=== PATIENT | female | born 1930 | race Caucasian/White ===

== ENCOUNTER 2016-10-25 08:50 | Emergency (ER) | payer MEDICARE, BC ==
[2016-10-25 08:56] VITALS: BP 196/103
[2016-10-25] MEDS ORDERED: Sodium Chloride 0.9% 10 ML Syringe FLUSH PRN (08:57)
--- NOTE | 2016-10-25 08:59 | EDM.PDOC ---
ED HPI Trauma - General Chief Complaint: Trauma Stated Complaint: [facility] Time Seen by Provider: 10/25/16 08:51 Source: Reports: Patient, EMS, Family History Limitations: Reports: No limitations - History of Present Illness INITIAL COMMENTS - FREE TEXT/NARRATIVE: The patient lives at [facility] and she got up and fell forward and landed on her face. She had no LOC. She thinks she may have stumbled and fell forward. She does not think she got lightheaded and fell. She has some ecchymosis to her upper lip with an abrasion. She has no headache, neck pain, chest pain, shortness of breath, abdominal pain, nausea or vomiting. She has some mild left hip pain. Occurred When: just prior to arrival Occurred Where: other ([facility]) Method of Injury: fall Severity: moderate Pain/Injury Location: Reports: face Consciousness: Reports: no loss of consciousness Associated Symptoms: Reports: no other symptoms Allergies/ADRs: Allergies codeine Allergy (Verified 10/25/16 09:05) Other unknown diclofenac Allergy (Verified 10/25/16 09:05) Other unknown Home Medications: Ambulatory Orders Ascorbic Acid [Vitamin C] 500 mg PO DAILY 10/25/16 [Confirmed 10/25/16] Ciprofloxacin HCl [Cipro] 500 mg PO BID #6 tablet 10/25/16 Docusate Sodium 100 mg PO BID PRN 10/25/16 [Confirmed 10/25/16] Lisinopril/Hydrochlorothiazide [Lisinopril-Hctz 10-12.5 mg Tab] 1 tab PO DAILY 10/25/16 [Confirmed 10/25/16] Multivitamin [Multivitamins] 1 cap PO DAILY 10/25/16 [Confirmed 10/25/16] [place]-3S/DHA/Epa/Fish Oil/D3 [Fish Oil + D3 Softgel] 1 tab PO DAILY 10/25/16 [ Confirmed 10/25/16] Omeprazole 20 mg PO DAILY 10/25/16 [Confirmed 10/25/16] Oxybutynin 5 mg PO BID 10/25/16 [Confirmed 10/25/16] Review of Systems - Review of Systems Review Of Systems: See Below Constitutional: Reports: no symptoms Eyes: Reports: no symptoms Ears: Reports: no symptoms Nose: Reports: no symptoms Mouth/Throat: Reports: other (abrasion and edema to the upper lip) Respiratory: Reports: No Symptoms Cardiovascular: Reports: no symptoms GI/Abdominal: Reports: No symptoms Genitourinary: Reports: no symptoms Musculoskeletal: Reports: other (Mild left hip pain) Skin: Reports: no symptoms ED EXAM, TRAUMA (MAJOR/MULTI) - Physical Exam Exam: See Below Exam Limited By: No limitations General Appearance: alert, no apparent distress Head: other (Edema and abrasion to the upper lip with dried blood on both) Eyes: bilateral eye: EOMI Ears: normal external exam Nose: normal inspection Neck: non-tender, normal alignment, normal inspection Cardiovascular: regular rate, rhythm, no edema, no murmur Respiratory/Chest: no respiratory distress, lungs clear, normal breath sounds GI/Abdominal: soft, non tender, no organomegaly Extremities: other (Mild pain upon palpation to the left hip but no pain with internal and external rotation. Good sensation or pulses distally.) Course - Vital Signs Last Recorded V/S: Last Vital Signs Temp 97.5 F 10/25/16 08:52 Pulse 102 H 10/25/16 08:52 Resp 18 10/25/16 08:52 BP 196/103 H 10/25/16 08:52 Pulse Ox 95 10/25/16 08:52 - Orders/Labs/Meds Orders: Active Orders 24 hr Category Date Time Status Cardiac Monitoring [RC] . DIRECTED Care 10/25/16 08:57 Active EKG Documentation Completion [RC] STAT Care 10/25/16 08:58 Active Oxygen Therapy [RC] PRN Care 10/25/16 08:57 Active Peripheral IV Care [RC] . DIRECTED Care 10/25/16 08:57 Active Hip Min 2V or 3V w Pelvis Lt [CR] Stat Exams 10/25/16 08:58 Taken CULTURE URINE [RM] Stat Lab 10/25/16 09:50 Received Sodium Chloride 0.9% [Saline Flush] Med 10/25/16 08:57 Active 10 ml FLUSH ASDIRECTED PRN Peripheral IV Insertion Adult [OM.PC] Stat Oth 10/25/16 08:57 Ordered Medication Orders Sodium Chloride (Saline Flush) 10 ml FLUSH ASDIRECTED PRN PRN Reason: Keep Vein Open Last Admin: 10/25/16 10:01 Dose: 10 ml Labs: Laboratory Tests 10/25/16 10/25/16 10/25/16 Range/Units 09:20 09:20 09:50 WBC 8.50 (3.98-10.04) K/mm3 RBC 4.90 (3.98-5.22) M/mm3 Hgb 14.6 (11.2-15.7) gm/L Hct 43.7 (34.1-44.9) % MCV 89.2 (79.4-94.8) fl MCH 29.8 (25.6-32.2) pg MCHC 33.4 (32.2-35.5) g/dl RDW Std Deviation 45.1 (36.4-46.3) fL Plt Count 313 (182-369) K/mm3 MPV 10.5 (9.4-12.3) fl Neut % (Auto) 75.5 H (34.0-71.1) % Lymph % (Auto) 17.1 L (19.3-51.7) % [place] % (Auto) 5.8 (4.7-12.5) % Eos % (Auto) 1.1 (0.7-5.8) Baso % (Auto) 0.4 (0.1-1.2) % Neut # (Auto) 6.43 H (1.56-6.13) K/mm3 Lymph # (Auto) 1.45 (1.18-3.74) K/mm3 [place] # (Auto) 0.49 H (0.24-0.36) K/mm3 Eos # (Auto) 0.09 (0.04-0.36) K/mm3 Baso # (Auto) 0.03 (0.01-0.08) K/mm3 Sodium 141 (136-145) mEq/L Potassium 4.2 (3.5-5.1) mEq/L Chloride 104 (98-107) mEq/L Carbon Dioxide 28 (21-32) mEq/L Anion Gap 13.2 (5-15) BUN 21 H (7-18) mg/dL Creatinine 0.9 (0.55-1.02) mg/dL Est Cr Clr Drug Dosing 35.74 mL/min Estimated GFR (MDRD) 59 (>60) mL/min BUN/Creatinine Ratio 23.3 H (14-18) Glucose 115 (83-115) mg/dL Calcium 10.0 (8.5-10.1) mg/dL Total Bilirubin 0.7 (0.2-1.0) mg/dL AST 21 (15-37) U/L ALT 18 (14-59) U/L Alkaline Phosphatase 80 (46-116) U/L Troponin I < 0.017 (0.00-0.056) ng/mL Total Protein 7.7 (6.4-8.2) g/dl Albumin 3.8 (3.4-5.0) g/dl Globulin 3.9 gm/dL Albumin/Globulin Ratio 1.0 (1-2) Urine Color Light yellow (Yellow) Urine Appearance Clear (Clear) Urine pH 6.0 (5.0-8.0) Ur Specific [place] 1.020 (1.005-1.030) Urine Protein 1+ H (Negative) Urine Glucose (UA) Negative (Negative) Urine Ketones Trace H (Negative) Urine Occult Blood 1+ H (Negative) Urine Nitrite Negative (Negative) Urine Bilirubin Negative (Negative) Urine Urobilinogen 0.2 (0.2-1.0) Ur Leukocyte Esterase Trace H (Negative) Urine RBC 0-5 (0-5) /hpf Urine WBC 0-5 (0-5) /hpf Ur Epithelial Cells 0-5 (0-5) /hpf Urine Bacteria Many H (FEW) /hpf Urine Mucus Few (FEW) /hpf Meds: Medications Generic Name Dose Route Start Last Admin Trade Name Freq PRN Reason Stop Dose Admin Sodium Chloride 10 ml 10/25/16 08:57 10/25/16 10:01 Saline Flush FLUSH 10 ml ASDIRECTED PRN Administration Keep Vein Open - Re-Assessments/Exams Free Text/Narrative Re-Assessment/Exam: 10/25/16 10:59 I ordered an IV saline lock, EKG, CT of her head, c-spine and facial bones, labs and UA. Her CBC and CMP look good. Her troponin was negative. Her UA shows leukocyte esterase with many bacteria. I will culture that and get her on some cipro for [address] of her cervical spine shows degenerative change. The CT of her head shows mild senescent change, mucosal thickening within the paranasal sinuses which is likely incidental. I am waiting for the CT of her facial bones. 10/25/16 11:[address] of her facial bones shows nothing acute. I will get the cipro ordered. Departure - Departure Time of Disposition: 11:30 Disposition: Home, Self-Care 01 Condition: good Clinical Impression: Fall Qualifiers: Encounter type: initial encounter Qualified Code(s): W19.XXXA - Unspecified fall, initial encounter Abrasion of lip Qualifiers: Encounter type: initial encounter Qualified Code(s): S00.511A - Abrasion of lip , initial encounter Contusion, lip Qualifiers: Encounter type: initial encounter Qualified Code(s): S00.531A - Contusion of lip, initial encounter UTI (urinary tract infection) Qualifiers: Urinary tract infection type: site unspecified Hematuria presence: without hematuria Qualified Code(s): N39.0 - Urinary tract infection, site not specified Prescriptions: Ciprofloxacin HCl [Cipro] 500 mg PO BID #6 tablet Referrals: Riki Hernandez MD [Primary Care Provider] - 1 Week Forms: ED Department Discharge Additional Instructions: Take the cipro 2 times per day for 3 days. Put ice on your face a couple times per day for any swelling. Please return if you are worse. - My Orders Last 24 Hours: My Active Orders 10/25/16 08:57 Cardiac Monitoring [RC] . DIRECTED Oxygen Therapy [RC] PRN Peripheral IV Care [RC] . DIRECTED Sodium Chloride 0.9% [Saline Flush] 10 ml FLUSH ASDIRECTED PRN Peripheral IV Insertion Adult [OM.PC] Stat 10/25/16 08:58 EKG Documentation Completion [RC] STAT Hip Min 2V or 3V w Pelvis Lt [CR] Stat 10/25/16 09:50 CULTURE URINE [RM] Stat - Assessment/Plan Last 24 Hours: My Active Orders 10/25/16 08:57 Cardiac Monitoring [RC] . DIRECTED Oxygen Therapy [RC] PRN Peripheral IV Care [RC] . DIRECTED Sodium Chloride 0.9% [Saline Flush] 10 ml FLUSH ASDIRECTED PRN Peripheral IV Insertion Adult [OM.PC] Stat 10/25/16 08:58 EKG Documentation Completion [RC] STAT Hip Min 2V or 3V w Pelvis Lt [CR] Stat 10/25/16 09:50 CULTURE URINE [RM] Stat
--- NOTE | 2016-10-25 09:48 | CT ---
Head CT Technique: Multiple axial sections through the brain were obtained. Intravenous contrast was not utilized. Comparison: No previous intracranial imaging. Findings: Ventricles along with basal cisterns and sulci are convexities are mildly prominent. Mild diminished density noted within portions of the periventricular and subcortical white matter compatible with small vessel ischemic demyelination change. No other abnormal parenchymal densities are seen. No evidence of intracranial hemorrhage. No midline shift or mass effect is seen. Bone window settings were reviewed which shows mild mucosal thickening within the right maxillary sinus. Minimal mucosal thickening is noted within the ethmoid sinuses. Mastoid sinuses and middle ear cavities are clear. No acute calvarial abnormality is identified. Impression: 1. Mild senescent change as described above. 2. Mucosal thickening within the paranasal sinuses which is likely incidental. 3. Nothing acute is identified. Diagnostic code #2
--- NOTE | 2016-10-25 09:51 | CT ---
Maxillofacial CT Technique: Multiple axial sections were obtained. Reconstructed coronal and sagittal images were obtained. Findings: Mucosal thickening is seen within the right maxillary sinus. Minimal mucosal thickening is noted within the ethmoid sinuses. Right and left globes are symmetric. Degenerative change is partially visualized within the cervical spine. Mild joint space narrowing is seen within the temporomandibular joints. No acute fracture or other abnormality is identified. Impression: 1. Sinus findings likely pre-existing. 2. Mild degenerative change within the temporomandibular joints. 3. Nothing acute is identified on CT study of the facial bones. Diagnostic code #2
--- NOTE | 2016-10-25 09:54 | CT ---
CT cervical spine Technique: Multiple axial sections were obtained from above C1 inferiorly to the mid T2 level. Reconstructed sagittal and coronal images were reviewed. Comparison: No previous cervical spine imaging. Findings: Posterior skull base is intact. Mild degenerative change is seen between the dens and anterior arch of C1. Moderate disc space narrowing is noted at C3-C4. Severe disc space narrowing is noted at C4-C5, C5-C6 and C6-C7. Mild disc space narrowing is noted at C7-T1. Degenerative spurring is noted within the uncovertebral joints from C3-C4 inferiorly through C5-C6-C7. Anterior osteophytes are also seen at these levels. Mild diffuse degenerative apophyseal change is seen throughout the cervical spine. Mild right-sided neural foraminal stenosis is noted at C3-C4. Mild bilateral neural foraminal stenosis is noted at C4-C5. Moderate bilateral neural foraminal stenosis noted at C5-C6 and at C6-C7. Posterior spurring with diffuse disc bulging noted at C4-C5 causing minimal central canal stenosis. No fracture is seen. Impression: 1. Degenerative change as described above. 2. No acute abnormality is identified on CT study of the cervical spine. Diagnostic code #2
--- NOTE | 2016-10-25 12:02 | CR ---
Pelvis and left hip: AP view of the pelvis was obtained as well as AP and frog-leg lateral views of the left hip. Comparison: No previous study. Degenerative change partially visualized within the lower lumbar spine. Joint spaces within both hips are maintained. Bony structures are osteopenic. No acute fracture or dislocation is identified. Mild vascular calcification is seen. Impression: 1. Incidental findings as noted above. Nothing acute is identified on AP pelvis or on two-view left hip exam. Diagnostic code #2
== END 2016-10-25 11:45 | disposition home or self-care (01) ==
LOC: JD.ED 08:50
DX: M25.552 Pain in left hip (principal); S00.511A Abrasion of lip, initial encounter; S00.531A Contusion of lip, initial encounter; W19.XXXA Unspecified fall, initial encounter; N39.0 Urinary tract infection, site not specified; Z88.8 Allergy status to other drugs, medicaments and biological substances; Z79.899 Other long term (current) drug therapy
CPT/HCPCS: 36415; 70450; 70486; 72125; 73502; 80053; 81001; 84484; 85025; 87086; 87088; 87186; 93005; 99285; J7050; P9612; 99284

== ENCOUNTER 2017-12-13 18:34 | Emergency (ER) | payer OTHER, MEDICARE, MEDICAID ==
[2017-12-13 18:48] VITALS: BP 174/74
--- NOTE | 2017-12-13 19:08 | EDM.PDOC ---
ED HPI GENERAL MEDICAL PROBLEM - General Chief Complaint: Lower Extremity Injury/Pain Stated Complaint: FELL RIGHT SIDE Time Seen by Provider: 12/13/17 18:54 Source of Information: Reports: Patient, RN Notes Reviewed - History of Present Illness INITIAL COMMENTS - FREE TEXT/NARRATIVE: 87 year old lady fell unto right side about 2 hrs ago getting out of bed. Has been complaining of R knee pain and R post lat chest, rib pain. no apparent difficulty breathing. Has dementia so hx quite difficult. A son is with her and providing most of the information. No head or neck pain or injury. no unusual back or hip pain. - Related Data Allergies Allergy/AdvReac Type Severity Reaction Status Date / Time codeine Allergy Other Verified 12/13/17 18:47 diclofenac Allergy Other Verified 12/13/17 18:47 Home Meds: Home Meds Ascorbic Acid [Vitamin C] 500 mg PO DAILY 10/25/16 [History] Docusate Sodium 100 mg PO BID PRN 10/25/16 [History] Lisinopril/Hydrochlorothiazide [Lisinopril-Hctz 10-12.5 mg Tab] 1 tab PO DAILY 10/25/16 [History] Multivitamin [Multivitamins] 1 cap PO DAILY 10/25/16 [History] Omeprazole 20 mg PO DAILY 10/25/16 [History] Oxybutynin 5 mg PO BID 10/25/16 [History] Sertraline [Zoloft] 25 mg PO DAILY 12/13/17 [History] Past Medical History Neurological History: Reports: Other (See Below) Other Neuro History: dementia - Past Surgical History GI Surgical History: Reports: Cholecystectomy Female Surgical History: Reports: Hysterectomy, Other (See Below) Other Female Surgeries/Procedures: uterine cancer Social & Family History - Tobacco Use Smoking Status *Q: Never Smoker - Caffeine Use Caffeine Use: Reports: None - Recreational Drug Use Recreational Drug Use: No Review of Systems - Review of Systems Review Of Systems: See Below Mouth/Throat: Reports: No Symptoms Respiratory: Denies: Shortness of Breath, Pleuritic Chest Pain Cardiovascular: Denies: Chest Pain GI/Abdominal: Denies: Abdominal Pain, Nausea, Vomiting Musculoskeletal: Reports: Joint Pain (R knee). Denies: Neck Pain, Shoulder Pain , Arm Pain, Back Pain Skin: Reports: No Symptoms. Denies: Bruising Neurological: Reports: Confusion (chronic). Denies: Weakness ED EXAM, GENERAL - Physical Exam Exam: See Below General Appearance: Alert, No Apparent Distress Eye Exam: Bilateral Eye: PERRL Ears: Normal External Exam Nose: Normal Inspection Throat/Mouth: Normal Inspection Head: Atraumatic. No: Facial Swelling Neck: Supple Respiratory/Chest: No Respiratory Distress, Lungs Clear, Normal Breath Sounds, Other (mild tenderness R post lateral chest, no bruising or swelling) Cardiovascular: Regular Rate, Rhythm GI/Abdominal: Soft, Non-Tender Back Exam: No: Vertebral Tenderness Extremities: Joint Swelling (mild swelling R knee, chronic? no focal tenderness , mild to moderate pain with motion, leg, ankle, foot nontender., hips and pelvis nontender) Course - Vital Signs Last Recorded V/S: Last Vital Signs Temp 98 F 12/13/17 18:44 Pulse 88 12/13/17 18:44 Resp 18 12/13/17 18:44 BP 174/74 H 12/13/17 18:44 Pulse Ox 93 L 12/13/17 18:44 - Orders/Labs/Meds Orders: Active Orders 24 hr Category Date Time Status Knee Min 4V Rt [CR] Stat Exams 12/13/17 19:02 Taken Ribs 2V w Chest Rt [CR] Stat Exams 12/13/17 19:03 Taken Meds: Medications Discontinued Medications Generic Name Dose Route Start Last Admin Trade Name Freq PRN Reason Stop Dose Admin Acetaminophen 975 mg 12/13/17 19:48 Tylenol PO 12/13/17 19:49 NOW ONE Departure - Departure Time of Disposition: 19:49 Disposition: Home, Self-Care 01 Condition: Fair Clinical Impression: Fall Qualifiers: Encounter type: initial encounter Qualified Code(s): W19.XXXA - Unspecified fall, initial encounter Contusion, knee Qualifiers: Encounter type: initial encounter Laterality: right Qualified Code(s): S80.01XA - Contusion of right knee, initial encounter Closed rib fracture Qualifiers: Encounter type: initial encounter Rib fracture type: single rib Laterality: right Qualified Code(s): S22.31XA - Fracture of one rib, right side, initial encounter for closed fracture - Discharge Information Referrals: Riki Hernandez MD [Primary Care Provider] - Forms: ED Department Discharge Additional Instructions: There is visible fracture of R 7th rib on the back side, rest, move slowly and carefully, tylenol up to 3 times daily for pain, See provider at [facility] in 2 to 3 days for follow up. - My Orders Last 24 Hours: My Active Orders 12/13/17 19:02 Knee Min 4V Rt [CR] Stat 12/13/17 19:03 Ribs 2V w Chest Rt [CR] Stat - Assessment/Plan Last 24 Hours: My Active Orders 12/13/17 19:02 Knee Min 4V Rt [CR] Stat 12/13/17 19:03 Ribs 2V w Chest Rt [CR] Stat
[2017-12-13] MEDS ORDERED: Acetaminophen 325 MG Tab PO ONE (19:48)
--- NOTE | 2017-12-14 07:31 | CR ---
Chest and right ribs: Frontal view of the chest was obtained as well as four views of the right ribs. Comparison: No prior chest x-ray. Large hiatal hernia is seen. Heart size is slightly enlarged. Tortuous thoracic aorta is seen. Calcific tendinitis is noted within the left shoulder. Lungs show no acute parenchymal densities. Fracture is identified within the right seventh rib which is indeterminate for age. Osteopenia is noted. No other definite rib abnormality is appreciated. Degenerative change is noted within the right shoulder. Impression: 1. Fracture within the right seventh rib indeterminate for age and please correlate if patient is symptomatic to this region. 2. Other findings which are felt to be incidental as noted above. Diagnostic code #3
--- NOTE | 2017-12-14 07:31 | CR ---
Right knee: Four views of the right knee were obtained. Comparison: No prior knee exam. Severe lateral joint space narrowing is noted with lateral osteophytes. Osteopenia is present. Minimal osteophytes off the patella are seen. Spurring is noted off the superior patella within the quadriceps tendon. Vascular calcification is noted. Bony structures are osteoporotic. Impression: 1. Degenerative change and other findings as noted above. Nothing acute is appreciated. Diagnostic code #3
== END 2017-12-13 20:20 | disposition home or self-care (01) ==
LOC: JD.ED 18:34
DX: S22.31XA Fracture of one rib, right side, initial encounter for closed fracture (principal); S80.01XA Contusion of right knee, initial encounter; Z79.899 Other long term (current) drug therapy; Z88.5 Allergy status to narcotic agent; Z88.8 Allergy status to other drugs, medicaments and biological substances; W19.XXXA Unspecified fall, initial encounter
CPT/HCPCS: 71101; 73564; 99284; A9270

== ENCOUNTER 2018-02-25 10:02 | Inpatient (IN) | payer MEDICARE, MEDICAID ==
[2018-02-25] MEDS ORDERED: Sodium Chloride 0.9% 10 ML Syringe FLUSH PRN (10:33)
[2018-02-25] MEDS ORDERED: Acetaminophen 325 MG Tab PO ONE (10:35)
[2018-02-25] MEDS ORDERED: cefTRIAXone 2 GM in Sodium Chloride 0.9% 100 ML IV ONE (10:38)
[2018-02-25] MEDS ORDERED: Sodium Chloride 0.9% 1,000 ML IV SCH (10:45)
--- NOTE | 2018-02-25 11:39 | EDM.PDOC ---
ED HPI GENERAL MEDICAL PROBLEM - General Chief Complaint: Fever Stated Complaint: [facility] Time Seen by Provider: 02/25/18 10:06 Source of Information: Reports: Patient, EMS, Other ([place] [facility]) History Limitations: Reports: No Limitations - History of Present Illness INITIAL COMMENTS - FREE TEXT/NARRATIVE: The patient presents with a fever and confusion. She has a slight cough. She denies chest pain or shortness of breath. She lives at the [facility] in [place]. She was fine last night. She woke up this morning and she had a fever and she was confused. She has no abdominal pain but she has some nausea but no vomiting. She had low oxygen saturation of 89%. She got some zofran 4mg IV. She also had right knee pain for a few days. Her temp was 101 here. She did get tylenol before she left the [facility]. She no dysuria or diarrhea. Onset: Gradual Duration: Day(s): Severity: Moderate Improves with: Reports: Immobilization Worsens with: Reports: Movement Associated Symptoms: Reports: Cough, Fever/Chills, Nausea/Vomiting. Denies: Chest Pain, Headaches, Shortness of Breath - Related Data Allergies Allergy/AdvReac Type Severity Reaction Status Date / Time codeine Allergy Other Verified 02/25/18 10:34 diclofenac Allergy Other Verified 02/25/18 10:34 Home Meds: Home Meds Ascorbic Acid [Vitamin C] 500 mg PO DAILY 10/25/16 [History] Docusate Sodium 100 mg PO BID PRN 10/25/16 [History] Lisinopril/Hydrochlorothiazide [Lisinopril-Hctz 10-12.5 mg Tab] 10 - 12.5 mg PO DAILY 10/25/16 [History] Multivitamin [Multivitamins] 1 cap PO DAILY 10/25/16 [History] Omeprazole 20 mg PO DAILY 10/25/16 [History] Oxybutynin 5 mg PO BID 10/25/16 [History] Sertraline [Zoloft] 25 mg PO DAILY 12/13/17 [History] Acetaminophen [Tylenol Extra Strength] 1,000 mg PO Q8H PRN 02/25/18 [History] Aspirin [Lo-Dose Aspirin EC] 81 mg PO DAILY 02/25/18 [History] Calcium Polycarbophil [Fibercon] 625 mg PO BID 02/25/18 [History] Ferrous Sulfate [Slow Fe] 50 mg PO BID 02/25/18 [History] Furosemide [Lasix] 20 mg PO DAILY PRN 02/25/18 [History] Hydroxyurea [Hydrea] 500 mg PO DAILY 02/25/18 [History] Ibuprofen 200 mg PO Q8H PRN 02/25/18 [History] Past Medical History HEENT History: Reports: Impaired Vision Other HEENT History: wears eyeglasses. Cardiovascular History: Reports: Hypertension Gastrointestinal History: Reports: GERD Genitourinary History: Reports: UTI, Recurrent [employer] History: Reports: Neurological History: Reports: Other (See Below) Other Neuro History: dementia Hematologic History: Reports: Anemia, Iron Deficiency Oncologic (Cancer) History: Reports: Uterine - Past Surgical History GI Surgical History: Reports: Cholecystectomy Female Surgical History: Reports: Hysterectomy, Other (See Below) Other Female Surgeries/Procedures: uterine cancer Musculoskeletal Surgical History: Reports: Knee Replacement Social & Family History - Tobacco Use Smoking Status *Q: Never Smoker Second Hand Smoke Exposure: No - Caffeine Use Caffeine Use: Reports: None - Recreational Drug Use Recreational Drug Use: No ED ROS GENERAL - Review of Systems Review Of Systems: See Below Constitutional: Reports: Fever, Chills HEENT: Reports: No Symptoms Respiratory: Reports: No Symptoms Cardiovascular: Reports: No Symptoms Endocrine: Reports: No Symptoms GI/Abdominal: Reports: No Symptoms : Reports: No Symptoms Musculoskeletal: Reports: Other (Right knee pain) ED EXAM, SEPSIS - Physical Exam Exam: See Below Exam Limited By: No Limitations General Appearance: Alert, No Apparent Distress Ears: Normal External Exam Nose: Normal Inspection Head: Atraumatic, Normocephalic Neck: Normal Inspection Respiratory/Chest: No Respiratory Distress, Decreased Breath Sounds Cardiovascular: Regular Rate, Rhythm, No Edema, No Murmur GI/Abdominal Exam: Soft, Non-Tender, No Organomegaly, No Mass Back: Normal Inspection Extremities: Other (Mild to moderate edema of her right knee with warmth and pain upon palpation) Neurological: Alert, Oriented, No Motor/Sensory Deficits Course - Vital Signs Last Recorded V/S: Last Vital Signs Temp 98.8 F 02/25/18 14:15 Pulse 70 02/25/18 14:15 Resp 16 02/25/18 14:15 BP 101/49 L 02/25/18 14:15 Pulse Ox 96 02/25/18 14:15 - Orders/Labs/Meds Orders: Active Orders 24 hr Category Date Time Status Cardiac Monitoring [RC] . DIRECTED Care 02/25/18 10:33 Active Insert Yepez Catheter [Insert Urinary Catheter] [OM.PC] Care 02/25/18 10:21 Ordered Q24H Oxygen Therapy [RC] PRN Care 02/25/18 10:33 Active Peripheral IV Care [RC] . DIRECTED Care 02/25/18 10:34 Active Urinary Catheter Assessment [RC] ASDIRECTED Care 02/25/18 10:21 Active Chest 1V Frontal [CR] Stat Exams 02/25/18 10:34 Taken Knee Min 4V Rt [CR] Stat Exams 02/25/18 10:42 Taken CULTURE BLOOD [BC] Stat Lab 02/25/18 10:55 Received CULTURE BLOOD [BC] Stat Lab 02/25/18 11:00 Received CULTURE BODY FLUID + SMEAR [RM] Stat Lab 02/25/18 12:30 Results CULTURE URINE [RM] Stat Lab 02/25/18 10:21 Received UA W/MICROSCOPIC [URIN] Stat Lab 02/25/18 10:21 Ordered Sodium Chloride 0.9% [Normal Saline] 1,000 ml Med 02/25/18 10:45 Active IV ASDIRECTED Sodium Chloride 0.9% [Saline Flush] Med 02/25/18 10:33 Active 10 ml FLUSH ASDIRECTED PRN Blood Culture x2 Reflex Set [OM.PC] Stat Oth 02/25/18 10:35 Ordered Peripheral IV Insertion Adult [OM.PC] Stat Oth 02/25/18 10:33 Ordered Medication Orders Sodium Chloride (Normal Saline) 1,000 mls @ 125 mls/hr IV ASDIRECTED [facility] Last Admin: 02/25/18 11:05 Dose: 125 mls/hr Sodium Chloride (Saline Flush) 10 ml FLUSH ASDIRECTED PRN PRN Reason: Keep Vein Open Last Admin: 02/25/18 11:14 Dose: 10 ml Labs: Laboratory Tests 02/25/18 02/25/18 02/25/18 Range/Units 10:21 10:55 10:55 WBC 8.47 (3.98-10.04) K/mm3 RBC 3.62 L (3.98-5.22) M/mm3 Hgb 11.3 (11.2-15.7) gm/L Hct 34.6 (34.1-44.9) % MCV 95.6 H (79.4-94.8) fl MCH 31.2 (25.6-32.2) pg MCHC 32.7 (32.2-35.5) g/dl RDW Std Deviation 66.0 H (36.4-46.3) fL Plt Count 244 (182-369) K/mm3 MPV 9.2 L (9.4-12.3) fl Neut % (Auto) 88.9 H (34.0-71.1) % Lymph % (Auto) 4.7 L (19.3-51.7) % [place] % (Auto) 6.0 (4.7-12.5) % Eos % (Auto) 0.1 L (0.7-5.8) Baso % (Auto) 0.1 (0.1-1.2) % Neut # (Auto) 7.52 H (1.56-6.13) K/mm3 Lymph # (Auto) 0.40 L (1.18-3.74) K/mm3 [place] # (Auto) 0.51 H (0.24-0.36) K/mm3 Eos # (Auto) 0.01 L (0.04-0.36) K/mm3 Baso # (Auto) 0.01 (0.01-0.08) K/mm3 Manual Slide Review Normal smear Sodium 143 (136-145) mEq/L Potassium 3.7 (3.5-5.1) mEq/L Chloride 107 (98-107) mEq/L Carbon Dioxide 28 (21-32) mEq/L Anion Gap 11.7 (5-15) BUN 27 H (7-18) mg/dL Creatinine 0.9 (0.55-1.02) mg/dL Est Cr Clr Drug Dosing 35.05 mL/min Estimated GFR (MDRD) 59 (>60) mL/min BUN/Creatinine Ratio 30.0 H (14-18) Glucose 116 H (83-115) mg/dL Lactic Acid (0.4-2.0) mmol/L Calcium 8.5 (8.5-10.1) mg/dL Total Bilirubin 0.3 (0.2-1.0) mg/dL AST 33 (15-37) U/L ALT 19 (14-59) U/L Alkaline Phosphatase 78 (46-116) U/L C-Reactive Protein 16.8 H* (<1.0) mg/dL Total Protein 6.5 (6.4-8.2) g/dl Albumin 2.7 L (3.4-5.0) g/dl Globulin 3.8 gm/dL Albumin/Globulin Ratio 0.7 L (1-2) Urine Color Yellow (Yellow) Urine Appearance Clear (Clear) Urine pH 5.5 (5.0-8.0) Ur Specific [place] 1.020 (1.005-1.030) Urine Protein 1+ H (Negative) Urine Glucose (UA) Negative (Negative) Urine Ketones Negative (Negative) Urine Occult Blood 1+ H (Negative) Urine Nitrite Negative (Negative) Urine Bilirubin Negative (Negative) Urine Urobilinogen 0.2 (0.2-1.0) Ur Leukocyte Esterase Negative (Negative) Urine RBC 0-5 (0-5) /hpf Urine WBC 0-5 (0-5) /hpf Ur Epithelial Cells 0-5 (0-5) /hpf Urine Bacteria Few (FEW) /hpf Urine Mucus Few (FEW) /hpf Synovial Fluid Site Synovial Color Synovial Appearance (CLEAR) Synovial Volume Synovial WBC (0.200-0.600) k/mm*3 Synovial RBC (0.00-0.003) 10*6/uL Synovial Seg Neuts (0-25) % Synovial Lymphocytes (0-78) % 02/25/18 02/25/18 Range/Units 10:55 12:30 WBC (3.98-10.04) K/mm3 RBC (3.98-5.22) M/mm3 Hgb (11.2-15.7) gm/L Hct (34.1-44.9) % MCV (79.4-94.8) fl MCH (25.6-32.2) pg MCHC (32.2-35.5) g/dl RDW Std Deviation (36.4-46.3) fL Plt Count (182-369) K/mm3 MPV (9.4-12.3) fl Neut % (Auto) (34.0-71.1) % Lymph % (Auto) (19.3-51.7) % [place] % (Auto) (4.7-12.5) % Eos % (Auto) (0.7-5.8) Baso % (Auto) (0.1-1.2) % Neut # (Auto) (1.56-6.13) K/mm3 Lymph # (Auto) (1.18-3.74) K/mm3 [place] # (Auto) (0.24-0.36) K/mm3 Eos # (Auto) (0.04-0.36) K/mm3 Baso # (Auto) (0.01-0.08) K/mm3 Manual Slide Review Sodium (136-145) mEq/L Potassium (3.5-5.1) mEq/L Chloride (98-107) mEq/L Carbon Dioxide (21-32) mEq/L Anion Gap (5-15) BUN (7-18) mg/dL Creatinine (0.55-1.02) mg/dL Est Cr Clr Drug Dosing mL/min Estimated GFR (MDRD) (>60) mL/min BUN/Creatinine Ratio (14-18) Glucose (83-115) mg/dL Lactic Acid 0.4 (0.4-2.0) mmol/L Calcium (8.5-10.1) mg/dL Total Bilirubin (0.2-1.0) mg/dL AST (15-37) U/L ALT (14-59) U/L Alkaline Phosphatase (46-116) U/L C-Reactive Protein (<1.0) mg/dL Total Protein (6.4-8.2) g/dl Albumin (3.4-5.0) g/dl Globulin gm/dL Albumin/Globulin Ratio (1-2) Urine Color (Yellow) Urine Appearance (Clear) Urine pH (5.0-8.0) Ur Specific [place] (1.005-1.030) Urine Protein (Negative) Urine Glucose (UA) (Negative) Urine Ketones (Negative) Urine Occult Blood (Negative) Urine Nitrite (Negative) Urine Bilirubin (Negative) Urine Urobilinogen (0.2-1.0) Ur Leukocyte Esterase (Negative) Urine RBC (0-5) /hpf Urine WBC (0-5) /hpf Ur Epithelial Cells (0-5) /hpf Urine Bacteria (FEW) /hpf Urine Mucus (FEW) /hpf Synovial Fluid Site Right knee Synovial Color [place] Synovial Appearance Slightly cloudy (CLEAR) Synovial Volume 4 Synovial WBC 1.846 H (0.200-0.600) k/mm*3 Synovial RBC 0.007 H (0.00-0.003) 10*6/uL Synovial Seg Neuts 92.0 H (0-25) % Synovial Lymphocytes 8.0 (0-78) % Meds: Medications Generic Name Dose Route Start Last Admin Trade Name Freq PRN Reason Stop Dose Admin Sodium Chloride 1,000 mls @ 125 mls/hr 02/25/18 10:45 02/25/18 11:05 Normal Saline IV 125 mls/hr ASDIRECTED LAMAR Administration Sodium Chloride 10 ml 02/25/18 10:33 02/25/18 11:14 Saline Flush FLUSH 10 ml ASDIRECTED PRN Administration Keep Vein Open Discontinued Medications Generic Name Dose Route Start Last Admin Trade Name Freq PRN Reason Stop Dose Admin Acetaminophen 975 mg 02/25/18 10:35 02/25/18 11:05 Tylenol PO 02/25/18 10:36 975 mg NOW ONE Administration Ceftriaxone Sodium 2 gm/ 100 mls @ 100 mls/hr 02/25/18 10:38 02/25/18 11:14 Sodium Chloride IV 02/25/18 11:37 100 mls/hr ONETIME ONE Administration Lidocaine HCl 10 ml 02/25/18 12:13 02/25/18 12:25 Xylocaine 1% INJECT 02/25/18 12:14 10 ml ONETIME ONE Administration - Re-Assessments/Exams Free Text/Narrative Re-Assessment/Exam: 02/25/18 14:45 I ordered an IV NS, labs, CXR, oxygen, blood cultures, UA, and rocephin 2 grams IV. Her CXR shows some atalectasis and possible pneumonia to the right middle lobe. 02/25/18 14:48 Her CBC is negative. Her CMP looks good. Her lactic acid is normal. Her UA shows no UTI. Her CRP is elevated at 16.8. I did got a sample of synovial fluid and sent if for analysis. There was 1.856 WBC and 92% segs. I feel she does have pneumonia and possibly a septic joint in the right knee. I called Dr Chahal and she agreed to the admission. Dr Muniz will be consulted. 02/25/18 14:54 I did an x-ray of his knee and there was severe arthritis. Departure - Departure Time of Disposition: 15:00 Disposition: Admitted As Inpatient 64 Condition: Fair Clinical Impression: Hypoxia Pneumonia Qualifiers: Pneumonia type: due to unspecified organism Laterality: right Lung location: lower lobe of lung Qualified Code(s): J18.1 - Lobar pneumonia, unspecified organism Right knee pain Qualifiers: Chronicity: acute Qualified Code(s): M25.561 - Pain in right knee - Discharge Information - My Orders Last 24 Hours: My Active Orders 02/25/18 10:21 Insert Yepez Catheter [Insert Urinary Catheter] [OM.PC] Q24H Urinary Catheter Assessment [RC] ASDIRECTED CULTURE URINE [RM] Stat UA W/MICROSCOPIC [URIN] Stat 02/25/18 10:33 Cardiac Monitoring [RC] . DIRECTED Oxygen Therapy [RC] PRN Sodium Chloride 0.9% [Saline Flush] 10 ml FLUSH ASDIRECTED PRN Peripheral IV Insertion Adult [OM.PC] Stat 02/25/18 10:34 Peripheral IV Care [RC] . DIRECTED Chest 1V Frontal [CR] Stat 02/25/18 10:35 Blood Culture x2 Reflex Set [OM.PC] Stat 02/25/18 10:42 Knee Min 4V Rt [CR] Stat 02/25/18 10:45 Sodium Chloride 0.9% [Normal Saline] 1,000 ml IV ASDIRECTED 02/25/18 10:55 CULTURE BLOOD [BC] Stat 02/25/18 11:00 CULTURE BLOOD [BC] Stat 02/25/18 12:30 CULTURE BODY FLUID + SMEAR [RM] Stat - Assessment/Plan Last 24 Hours: My Active Orders 02/25/18 10:21 Insert Yepez Catheter [Insert Urinary Catheter] [OM.PC] Q24H Urinary Catheter Assessment [RC] ASDIRECTED CULTURE URINE [RM] Stat UA W/MICROSCOPIC [URIN] Stat 02/25/18 10:33 Cardiac Monitoring [RC] . DIRECTED Oxygen Therapy [RC] PRN Sodium Chloride 0.9% [Saline Flush] 10 ml FLUSH ASDIRECTED PRN Peripheral IV Insertion Adult [OM.PC] Stat 02/25/18 10:34 Peripheral IV Care [RC] . DIRECTED Chest 1V Frontal [CR] Stat 02/25/18 10:35 Blood Culture x2 Reflex Set [OM.PC] Stat 02/25/18 10:42 Knee Min 4V Rt [CR] Stat 02/25/18 10:45 Sodium Chloride 0.9% [Normal Saline] 1,000 ml IV ASDIRECTED 02/25/18 10:55 CULTURE BLOOD [BC] Stat 02/25/18 11:00 CULTURE BLOOD [BC] Stat 02/25/18 12:30 CULTURE BODY FLUID + SMEAR [RM] Stat
[2018-02-25] MEDS ORDERED: Lidocaine 1% 10 ML MDV INJECT ONE (12:13)
--- NOTE | 2018-02-25 14:40 | PCM.HP ---
H&P History of Present Illness - General Date of Service: 02/25/18 Admit Problem/Dx: Admission Diagnosis/Problem Admission Diagnosis/Problem Pneumonia Source of Information: Provider History Limitations: Reports: No Limitations - History of Present Illness Onset of Symptoms: Reports: Sudden Symptom Onset Date: 02/25/18 Duration of Symptoms: Reports: Day(s): Location: Reports: Generalized Improves with: Reports: Medication Worsens with: Reports: None Context: Reports: Sick Contact (unknown) Associated Symptoms: Reports: Cough, Fever/Chills, Loss of Appetite, Nausea/ Vomiting, Shortness of Breath, Weakness - Related Data Allergies/Adverse Reactions: Allergies Allergy/AdvReac Type Severity Reaction Status Date / Time codeine Allergy Other Verified 02/25/18 10:34 diclofenac Allergy Other Verified 02/25/18 10:34 Home Medications: Home Meds Ascorbic Acid [Vitamin C] 500 mg PO DAILY 10/25/16 [History] Docusate Sodium 100 mg PO BID PRN 10/25/16 [History] Lisinopril/Hydrochlorothiazide [Lisinopril-Hctz 10-12.5 mg Tab] 10 - 12.5 mg PO DAILY 10/25/16 [History] Multivitamin [Multivitamins] 1 cap PO DAILY 10/25/16 [History] Omeprazole 20 mg PO DAILY 10/25/16 [History] Oxybutynin 10 mg PO 1700 10/25/16 [History] Sertraline [Zoloft] 25 mg PO DAILY 12/13/17 [History] Acetaminophen [Tylenol Extra Strength] 1,000 mg PO Q8H PRN 02/25/18 [History] Aspirin [Lo-Dose Aspirin EC] 81 mg PO DAILY 02/25/18 [History] Calcium Polycarbophil [Fibercon] 625 mg PO BID 02/25/18 [History] Ferrous Sulfate [Slow Fe] 50 mg PO BID 02/25/18 [History] Furosemide [Lasix] 20 mg PO DAILY PRN 02/25/18 [History] Hydroxyurea [Hydrea] 500 mg PO DAILY 02/25/18 [History] Ibuprofen 200 mg PO Q8H PRN 02/25/18 [History] Past Medical History HEENT History: Reports: Impaired Vision Other HEENT History: wears eyeglasses. 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: Neurological History: Reports: Other (See Below) Other Neuro History: dementia Hematologic History: Reports: Anemia, Iron Deficiency Oncologic (Cancer) History: Reports: Uterine - Past Surgical History GI Surgical History: Reports: Cholecystectomy Female Surgical History: Reports: Hysterectomy, Other (See Below) Other Female Surgeries/Procedures: uterine cancer Musculoskeletal Surgical History: Reports: Knee Replacement Social & Family History - Tobacco Use Smoking Status *Q: Never Smoker Second Hand Smoke Exposure: No - Caffeine Use Caffeine Use: Reports: None - Recreational Drug Use Recreational Drug Use: No H&P Review of Systems - Review of Systems: Review Of Systems: See Below General: Reports: Fever, Chills, Malaise, Weakness, Decreased Appetite HEENT: Reports: No Symptoms Pulmonary: Reports: Shortness of Breath Cardiovascular: Reports: No Symptoms Gastrointestinal: Reports: No Symptoms Genitourinary: Reports: No Symptoms Musculoskeletal: Reports: No Symptoms Skin: Reports: No Symptoms Psychiatric: Reports: Confusion Neurological: Reports: Confusion Hematologic/Lymphatic: Reports: No Symptoms Immunologic: Reports: No Symptoms Exam - Exam Exam: See Below - Vital Signs Vital Signs: Last Vital Signs Temp 37.1 C 02/25/18 14:15 Pulse 70 02/25/18 14:15 Resp 16 02/25/18 14:15 BP 101/49 L 02/25/18 14:15 Pulse Ox 96 02/25/18 14:15 Weight: 56.699 kg - Exam Quality Assessment: Supplemental Oxygen General: Alert, Oriented, Cooperative HEENT: Nares Patent, Normal Nasal Septum, Pupils Equal, Pupils Reactive, PERRLA Neck: Trachea Midline Lungs: Normal Respiratory Effort Cardiovascular: Regular Rate GI/Abdominal Exam: Normal Bowel Sounds, Soft, Non-Tender, No Organomegaly, No Distention (Female) Exam: Deferred Rectal (Female) Exam: Deferred Back Exam: Normal Inspection Extremities: Normal Inspection, Non-Tender, Slow Capillary Refill Skin: Warm Neurological: Cranial Nerves Intact Neuro Extensive - Mental Status: Alert Neuro Extensive - Motor, Sensory, Reflexes: CN II-XII Intact - Patient Data Lab Results Last 24 hrs: Laboratory Results - last 24 hr 02/25/18 02/25/18 02/25/18 Range/Units 10:21 10:55 10:55 WBC 8.47 (3.98-10.04) K/mm3 RBC 3.62 L (3.98-5.22) M/mm3 Hgb 11.3 (11.2-15.7) gm/L Hct 34.6 (34.1-44.9) % MCV 95.6 H (79.4-94.8) fl MCH 31.2 (25.6-32.2) pg MCHC 32.7 (32.2-35.5) g/dl RDW Std Deviation 66.0 H (36.4-46.3) fL Plt Count 244 (182-369) K/mm3 MPV 9.2 L (9.4-12.3) fl Neut % (Auto) 88.9 H (34.0-71.1) % Lymph % (Auto) 4.7 L (19.3-51.7) % [place] % (Auto) 6.0 (4.7-12.5) % Eos % (Auto) 0.1 L (0.7-5.8) Baso % (Auto) 0.1 (0.1-1.2) % Neut # (Auto) 7.52 H (1.56-6.13) K/mm3 Lymph # (Auto) 0.40 L (1.18-3.74) K/mm3 [place] # (Auto) 0.51 H (0.24-0.36) K/mm3 Eos # (Auto) 0.01 L (0.04-0.36) K/mm3 Baso # (Auto) 0.01 (0.01-0.08) K/mm3 Manual Slide Review Normal smear Sodium 143 (136-145) mEq/L Potassium 3.7 (3.5-5.1) mEq/L Chloride 107 (98-107) mEq/L Carbon Dioxide 28 (21-32) mEq/L Anion Gap 11.7 (5-15) BUN 27 H (7-18) mg/dL Creatinine 0.9 (0.55-1.02) mg/dL Est Cr Clr Drug Dosing 35.05 mL/min Estimated GFR (MDRD) 59 (>60) mL/min BUN/Creatinine Ratio 30.0 H (14-18) Glucose 116 H (83-115) mg/dL Lactic Acid (0.4-2.0) mmol/L Calcium 8.5 (8.5-10.1) mg/dL Total Bilirubin 0.3 (0.2-1.0) mg/dL AST 33 (15-37) U/L ALT 19 (14-59) U/L Alkaline Phosphatase 78 (46-116) U/L C-Reactive Protein 16.8 H* (<1.0) mg/dL Total Protein 6.5 (6.4-8.2) g/dl Albumin 2.7 L (3.4-5.0) g/dl Globulin 3.8 gm/dL Albumin/Globulin Ratio 0.7 L (1-2) Urine Color Yellow (Yellow) Urine Appearance Clear (Clear) Urine pH 5.5 (5.0-8.0) Ur Specific [place] 1.020 (1.005-1.030) Urine Protein 1+ H (Negative) Urine Glucose (UA) Negative (Negative) Urine Ketones Negative (Negative) Urine Occult Blood 1+ H (Negative) Urine Nitrite Negative (Negative) Urine Bilirubin Negative (Negative) Urine Urobilinogen 0.2 (0.2-1.0) Ur Leukocyte Esterase Negative (Negative) Urine RBC 0-5 (0-5) /hpf Urine WBC 0-5 (0-5) /hpf Ur Epithelial Cells 0-5 (0-5) /hpf Urine Bacteria Few (FEW) /hpf Urine Mucus Few (FEW) /hpf Synovial Fluid Site Synovial Color Synovial Appearance (CLEAR) Synovial Volume Synovial WBC (0.200-0.600) k/mm*3 Synovial RBC (0.00-0.003) 10*6/uL Synovial Seg Neuts (0-25) % Synovial Lymphocytes (0-78) % 02/25/18 02/25/18 Range/Units 10:55 12:30 WBC (3.98-10.04) K/mm3 RBC (3.98-5.22) M/mm3 Hgb (11.2-15.7) gm/L Hct (34.1-44.9) % MCV (79.4-94.8) fl MCH (25.6-32.2) pg MCHC (32.2-35.5) g/dl RDW Std Deviation (36.4-46.3) fL Plt Count (182-369) K/mm3 MPV (9.4-12.3) fl Neut % (Auto) (34.0-71.1) % Lymph % (Auto) (19.3-51.7) % [place] % (Auto) (4.7-12.5) % Eos % (Auto) (0.7-5.8) Baso % (Auto) (0.1-1.2) % Neut # (Auto) (1.56-6.13) K/mm3 Lymph # (Auto) (1.18-3.74) K/mm3 [place] # (Auto) (0.24-0.36) K/mm3 Eos # (Auto) (0.04-0.36) K/mm3 Baso # (Auto) (0.01-0.08) K/mm3 Manual Slide Review Sodium (136-145) mEq/L Potassium (3.5-5.1) mEq/L Chloride (98-107) mEq/L Carbon Dioxide (21-32) mEq/L Anion Gap (5-15) BUN (7-18) mg/dL Creatinine (0.55-1.02) mg/dL Est Cr Clr Drug Dosing mL/min Estimated GFR (MDRD) (>60) mL/min BUN/Creatinine Ratio (14-18) Glucose (83-115) mg/dL Lactic Acid 0.4 (0.4-2.0) mmol/L Calcium (8.5-10.1) mg/dL Total Bilirubin (0.2-1.0) mg/dL AST (15-37) U/L ALT (14-59) U/L Alkaline Phosphatase (46-116) U/L C-Reactive Protein (<1.0) mg/dL Total Protein (6.4-8.2) g/dl Albumin (3.4-5.0) g/dl Globulin gm/dL Albumin/Globulin Ratio (1-2) Urine Color (Yellow) Urine Appearance (Clear) Urine pH (5.0-8.0) Ur Specific [place] (1.005-1.030) Urine Protein (Negative) Urine Glucose (UA) (Negative) Urine Ketones (Negative) Urine Occult Blood (Negative) Urine Nitrite (Negative) Urine Bilirubin (Negative) Urine Urobilinogen (0.2-1.0) Ur Leukocyte Esterase (Negative) Urine RBC (0-5) /hpf Urine WBC (0-5) /hpf Ur Epithelial Cells (0-5) /hpf Urine Bacteria (FEW) /hpf Urine Mucus (FEW) /hpf Synovial Fluid Site Right knee Synovial Color [place] Synovial Appearance Slightly cloudy (CLEAR) Synovial Volume 4 Synovial WBC 1.846 H (0.200-0.600) k/mm*3 Synovial RBC 0.007 H (0.00-0.003) 10*6/uL Synovial Seg Neuts 92.0 H (0-25) % Synovial Lymphocytes 8.0 (0-78) % Result Diagrams: 02/27/18 05:48 02/27/18 05:48 Beck Results Last 24 hrs: Microbiology 02/25/18 12:30 Gram Stain - Final Joint / Synovial Fluid - Knee, Right Orders Last 24hrs: Active Orders 24 hr Category Date Time Status Patient Status [ADT] Routine ADT 02/25/18 13:49 Active Cardiac Monitoring [RC] . DIRECTED Care 02/25/18 10:33 Active Insert Yepez Catheter [Insert Urinary Catheter] [OM.PC] Care 02/25/18 10:21 Ordered Q24H Oxygen Therapy [RC] PRN Care 02/25/18 10:33 Active Peripheral IV Care [RC] . DIRECTED Care 02/25/18 10:34 Active Urinary Catheter Assessment [RC] ASDIRECTED Care 02/25/18 10:21 Active Chest 1V Frontal [CR] Stat Exams 02/25/18 10:34 Taken Knee Min 4V Rt [CR] Stat Exams 02/25/18 10:42 Taken CULTURE BLOOD [BC] Stat Lab 02/25/18 10:55 Received CULTURE BLOOD [BC] Stat Lab 02/25/18 11:00 Received CULTURE BODY FLUID + SMEAR [RM] Stat Lab 02/25/18 12:30 Results CULTURE URINE [RM] Stat Lab 02/25/18 10:21 Received UA W/MICROSCOPIC [URIN] Stat Lab 02/25/18 10:21 Ordered Sodium Chloride 0.9% [Normal Saline] 1,000 ml Med 02/25/18 10:45 Active IV ASDIRECTED Sodium Chloride 0.9% [Saline Flush] Med 02/25/18 10:33 Active 10 ml FLUSH ASDIRECTED PRN Blood Culture x2 Reflex Set [OM.PC] Stat Oth 02/25/18 10:35 Ordered Peripheral IV Insertion Adult [OM.PC] Stat Oth 02/25/18 10:33 Ordered Medication Orders Sodium Chloride (Normal Saline) 1,000 mls @ 125 mls/hr IV ASDIRECTED LAMAR Last Admin: 02/25/18 11:05 Dose: 125 mls/hr Sodium Chloride (Saline Flush) 10 ml FLUSH ASDIRECTED PRN PRN Reason: Keep Vein Open Last Admin: 02/25/18 11:14 Dose: 10 ml
[2018-02-25] MEDS ORDERED: Acetaminophen 325 MG Tab PO PRN (16:08)
[2018-02-25] MEDS ORDERED: Docusate Sodium 100 MG Cap PO PRN (16:08)
[2018-02-25] MEDS ORDERED: guaiFENesin/Dextromethorphan 100-10 MG/5 ML Soln 5 ML Cup PO PRN (16:17)
[2018-02-25] MEDS ORDERED: Albuterol/Ipratropium 3.0-0.5 MG/3 ML Neb Soln NEB PRN (16:19)
[2018-02-25] MEDS ORDERED: traMADol 50 MG Tab PO PRN (16:22)
[2018-02-25] MEDS ORDERED: Ondansetron 4 MG/2 ML SDV IVPUSH PRN (16:30)
[2018-02-25] MEDS ORDERED: Azithromycin 500 MG AdvVial IV SCH (16:30)
[2018-02-25] MEDS: Enoxaparin 40 MG/0.4 ML Syringe SUBCUT SCH (17:25)
[2018-02-25] MEDS: Azithromycin 500 MG in Sodium Chloride 0.9% 250 ML IV SCH (17:26)
[2018-02-25] MEDS: Oxybutynin 5 MG Tab PO SCH (21:01)
[2018-02-26] MEDS: Pantoprazole 40 MG Tab.CR PO SCH (10:21)
[2018-02-26] MEDS: Aspirin 81 MG Tab.EC PO SCH (10:21)
[2018-02-26] MEDS: FERROUS SULFATE 50 MG PO SCH ×2 (10:21→22:05)
[2018-02-26] MEDS: HYDROXYUREA 500 MG PO SCH (10:22)
[2018-02-26] MEDS: Ascorbic Acid 500 MG Tab PO SCH (10:22)
[2018-02-26] MEDS: Oxybutynin 5 MG Tab PO SCH ×2 (10:22→20:07)
[2018-02-26] MEDS: Sertraline 25 MG Tab PO SCH (10:22)
--- NOTE | 2018-02-26 11:43 | CR ---
Chest: Portable view of the chest was obtained. Comparison: Prior chest x-ray of 12/13/17. Moderately large hiatal hernia seen. Heart size is normal. Tortuous thoracic aorta is seen. Slight right basilar atelectasis is noted. Old healed left-sided rib fractures are noted. Right hemidiaphragm is elevated which is chronic. Incidental scoliosis is noted within the spine. Impression: 1. Incidental findings. Nothing acute is seen on portable chest x-ray. Diagnostic code #2
--- NOTE | 2018-02-26 11:43 | CR ---
Right knee: Four views of the right knee were obtained. Comparison: Prior right knee exam of 12/13/17. Severe lateral joint space narrowing is noted with osteophytes. Medial joint space is preserved. Chondrocalcinosis is noted within the medial meniscus. Calcification is noted at the attachment of the quadriceps tendon to the patella. Patella shows mild articular osteophytes. Bony structures are osteopenic. Vascular calcification is seen. Impression: 1. Osteopenia and degenerative change. Vascular calcification. 2. Nothing acute is seen. Diagnostic code #2
[2018-02-26] MEDS ORDERED: cefTRIAXone 2 GM in Sodium Chloride 0.9% 100 ML IV SCH (13:00)
[2018-02-26] MEDS: Enoxaparin 40 MG/0.4 ML Syringe SUBCUT SCH (17:24)
[2018-02-26] MEDS: Azithromycin 500 MG in Sodium Chloride 0.9% 250 ML IV SCH (17:24)
--- NOTE | 2018-02-26 19:00 | PCM.PN ---
- General Info Date of Service: 02/26/18 - Patient Data Vitals - Most Recent: Last Vital Signs Temp 36.8 C 02/26/18 17:17 Pulse 76 02/26/18 17:17 Resp 20 02/26/18 17:17 BP 145/81 H 02/26/18 17:17 Pulse Ox 99 02/26/18 17:17 Weight - Most Recent: 54.476 kg I&O - Last 24 Hours: Intake & Output 02/26/18 02/26/18 02/26/18 06:59 14:59 22:59 Intake Total 540 697 [id number] Balance 181 058 8592 Lab Results Last 24 Hours: Laboratory Results - last 24 hr 02/26/18 02/26/18 02/26/18 Range/Units 05:28 05:28 05:28 WBC 6.56 (3.98-10.04) K/mm3 RBC 3.56 L (3.98-5.22) M/mm3 Hgb 11.0 L (11.2-15.7) gm/L Hct 34.2 (34.1-44.9) % MCV 96.1 H (79.4-94.8) fl MCH 30.9 (25.6-32.2) pg MCHC 32.2 (32.2-35.5) g/dl RDW Std Deviation 66.4 H (36.4-46.3) fL Plt Count 210 (182-369) K/mm3 MPV 9.4 (9.4-12.3) fl Neut % (Auto) 94.0 H (34.0-71.1) % Lymph % (Auto) 3.2 L (19.3-51.7) % [place] % (Auto) 2.3 L (4.7-12.5) % Eos % (Auto) 0 L (0.7-5.8) Baso % (Auto) 0.2 (0.1-1.2) % Neut # (Auto) 6.17 H (1.56-6.13) K/mm3 Lymph # (Auto) 0.21 L (1.18-3.74) K/mm3 [place] # (Auto) 0.15 L (0.24-0.36) K/mm3 Eos # (Auto) 0.00 L (0.04-0.36) K/mm3 Baso # (Auto) 0.01 (0.01-0.08) K/mm3 Manual Slide Review Abnormal smear Sodium 140 (136-145) mEq/L Potassium 3.3 L (3.5-5.1) mEq/L Chloride 105 (98-107) mEq/L Carbon Dioxide 27 (21-32) mEq/L Anion Gap 11.3 (5-15) BUN 19 H (7-18) mg/dL Creatinine 0.9 (0.55-1.02) mg/dL Est Cr Clr Drug Dosing 35.05 mL/min Estimated GFR (MDRD) 59 (>60) mL/min BUN/Creatinine Ratio 21.1 H (14-18) Glucose 100 (83-115) mg/dL Lactic Acid 0.7 (0.4-2.0) mmol/L Calcium 8.4 L (8.5-10.1) mg/dL Magnesium 1.7 L (1.8-2.4) mg/dl C-Reactive Protein 21.1 H* (<1.0) mg/dL Vitamin B12 (193-986) pg/ml Folate (8.6-58.9) ng/mL 02/26/18 Range/Units 05:28 WBC (3.98-10.04) K/mm3 RBC (3.98-5.22) M/mm3 Hgb (11.2-15.7) gm/L Hct (34.1-44.9) % MCV (79.4-94.8) fl MCH (25.6-32.2) pg MCHC (32.2-35.5) g/dl RDW Std Deviation (36.4-46.3) fL Plt Count (182-369) K/mm3 MPV (9.4-12.3) fl Neut % (Auto) (34.0-71.1) % Lymph % (Auto) (19.3-51.7) % [place] % (Auto) (4.7-12.5) % Eos % (Auto) (0.7-5.8) Baso % (Auto) (0.1-1.2) % Neut # (Auto) (1.56-6.13) K/mm3 Lymph # (Auto) (1.18-3.74) K/mm3 [place] # (Auto) (0.24-0.36) K/mm3 Eos # (Auto) (0.04-0.36) K/mm3 Baso # (Auto) (0.01-0.08) K/mm3 Manual Slide Review Sodium (136-145) mEq/L Potassium (3.5-5.1) mEq/L Chloride (98-107) mEq/L Carbon Dioxide (21-32) mEq/L Anion Gap (5-15) BUN (7-18) mg/dL Creatinine (0.55-1.02) mg/dL Est Cr Clr Drug Dosing mL/min Estimated GFR (MDRD) (>60) mL/min BUN/Creatinine Ratio (14-18) Glucose (83-115) mg/dL Lactic Acid (0.4-2.0) mmol/L Calcium (8.5-10.1) mg/dL Magnesium (1.8-2.4) mg/dl C-Reactive Protein (<1.0) mg/dL Vitamin B12 720 (193-986) pg/ml Folate 39.1 (8.6-58.9) ng/mL Beck Results Last 24 Hours: Microbiology 02/25/18 11:00 Aerobic Blood Culture - Preliminary Blood - Venous - Lab Draw NO GROWTH AFTER 1 DAY Anaerobic Blood Culture - Preliminary NO GROWTH AFTER 1 DAY 02/25/18 10:55 Aerobic Blood Culture - Preliminary Blood - Venous NO GROWTH AFTER 1 DAY Anaerobic Blood Culture - Preliminary NO GROWTH AFTER 1 DAY 02/25/18 10:21 Urine Culture - Preliminary Urine, Catheterized NO GROWTH AFTER 1 DAY 02/25/18 12:30 Gram Stain - Final Joint / Synovial Fluid - Knee, Right Body Fluid Culture - Preliminary NO GROWTH AFTER 1 DAY Med Orders - Current: Current Medications Acetaminophen (Tylenol) 650 mg PO Q8H PRN PRN Reason: Pain/Fever Albuterol/Ipratropium (Duoneb 3.0-0.5 Mg/3 Ml) 3 ml NEB QID PRN PRN Reason: Shortness of Breath Ascorbic Acid (Vitamin C) 500 mg PO DAILY [facility] Last Admin: 02/26/18 10:22 Dose: 500 mg Aspirin (Halfprin) 81 mg PO DAILY [facility] Last Admin: 02/26/18 10:21 Dose: 81 mg Docusate Sodium (Colace) 100 mg PO BID PRN PRN Reason: Constipation Enoxaparin Sodium (Lovenox) 40 mg SUBCUT Q24H [facility] Last Admin: 02/26/18 17:24 Dose: 40 mg Guaifenesin/Phenylephrine HCl (Robitussin Dm) 15 ml PO Q6H PRN PRN Reason: Cough Ceftriaxone Sodium 2 gm/ (Sodium Chloride) 100 mls @ 100 mls/hr IV Q24H [facility] Last Admin: 02/26/18 12:46 Dose: 100 mls/hr Azithromycin 500 mg/ Sodium (Chloride) 250 mls @ 250 mls/hr IV Q24H [facility] Last Admin: 02/26/18 17:24 Dose: 250 mls/hr Ondansetron HCl (Zofran) 4 mg IVPUSH Q8H PRN PRN Reason: Nausea/Vomiting Oxybutynin Chloride (Oxybutynin) 5 mg PO BID [facility] Last Admin: 02/26/18 10:22 Dose: 5 mg Pantoprazole Sodium (Protonix) 40 mg PO DAILY@0700 [facility] Last Admin: 02/26/18 10:21 Dose: 40 mg Ferrous Sulfate 50 (Mg Tab.) 0 each PO BID [facility] Last Admin: 02/26/18 10:21 Dose: Not Given Hydroxyurea 500 Mg (Cap.) 0 each PO DAILY [facility] Last Admin: 02/26/18 10:22 Dose: Not Given Potassium Chloride (Klor-Con M20) 40 meq PO BID [facility] Stop: 02/27/18 09:01 Sertraline HCl (Zoloft) 25 mg PO DAILY [facility] Last Admin: 02/26/18 10:22 Dose: 25 mg Sodium Chloride (Saline Flush) 10 ml FLUSH ASDIRECTED PRN PRN Reason: Keep Vein Open Last Admin: 02/25/18 11:14 Dose: 10 ml Tramadol HCl (Ultram) 50 mg PO Q6H PRN PRN Reason: Pain (moderate 4-6) Discontinued Medications Acetaminophen (Tylenol) 975 mg PO NOW ONE Stop: 02/25/18 10:36 Last Admin: 02/25/18 11:05 Dose: 975 mg Acetaminophen (Tylenol) 975 mg PO Q8H PRN PRN Reason: Pain/Fever Azithromycin (Zithromax) 500 mg IV Q24H [facility] Ceftriaxone Sodium 2 gm/ (Sodium Chloride) 100 mls @ 100 mls/hr IV ONETIME ONE Stop: 02/25/18 11:37 Last Admin: 02/25/18 11:14 Dose: 100 mls/hr Sodium Chloride (Normal Saline) 1,000 mls @ 125 mls/hr IV ASDIRECTED [facility] Last Admin: 02/25/18 11:05 Dose: 125 mls/hr Lidocaine HCl (Xylocaine 1%) 10 ml INJECT ONETIME ONE Stop: 02/25/18 12:14 Last Admin: 02/25/18 12:25 Dose: 10 ml - My Orders Last 24 Hours: My Active Orders 02/25/18 18:58 Resuscitation Status Routine 02/25/18 21:00 Oxybutynin 5 mg PO BID Patient's Own Medication [Ptom] 0 each PO BID 02/26/18 07:00 Pantoprazole [ProTONIX] 40 mg PO DAILY@0700 02/26/18 09:00 Ascorbic Acid [Vitamin C] 500 mg PO DAILY Aspirin [Halfprin] 81 mg PO DAILY Patient's Own Medication [Ptom] 0 each PO DAILY Sertraline [Zoloft] 25 mg PO DAILY 02/26/18 11:32 RESPIRATORY PANEL Routine 02/26/18 13:00 [id number] [Rocephin] 2 gm Sodium Chloride 0.9% [Normal Saline] 100 ml IV Q24H 02/26/18 21:00 Potassium Chloride [Klor-Con M20] 40 meq PO BID 02/27/18 05:00 BMP [BASIC METABOLIC PANEL,BMP] [CHEM] DAILY CBC WITH AUTO DIFF [HEME] DAILY CRP [C-REACTIVE PROTEIN] [CHEM] DAILY LACTIC ACID [CHEM] DAILY MAGNESIUM [CHEM] DAILY 02/27/18 08:00 Consult to Occupational Therapy [OT Evaluation and Treatment] [CONS] Routine Consult to Physical Therapy [PT Evaluation and Treatment] [CONS] Routine 02/27/18 09:00 CXR [Chest 2V] [CR] Routine 02/28/18 05:00 BMP [BASIC METABOLIC PANEL,BMP] [CHEM] DAILY CBC WITH AUTO DIFF [HEME] DAILY CRP [C-REACTIVE PROTEIN] [CHEM] DAILY LACTIC ACID [CHEM] DAILY MAGNESIUM [CHEM] DAILY 03/01/18 05:00 BMP [BASIC METABOLIC PANEL,BMP] [CHEM] DAILY CBC WITH AUTO DIFF [HEME] DAILY CRP [C-REACTIVE PROTEIN] [CHEM] DAILY LACTIC ACID [CHEM] DAILY MAGNESIUM [CHEM] DAILY
[2018-02-26] MEDS: Potassium Chloride 20 MEQ Tab.ER PO SCH (20:07)
[2018-02-27] MEDS: Pantoprazole 40 MG Tab.CR PO SCH (06:38)
[2018-02-27] MEDS: Aspirin 81 MG Tab.EC PO SCH (07:59)
[2018-02-27] MEDS: Potassium Chloride 20 MEQ Tab.ER PO SCH (07:59)
[2018-02-27] MEDS: Ascorbic Acid 500 MG Tab PO SCH (07:59)
[2018-02-27] MEDS: HYDROXYUREA 500 MG PO SCH (08:00)
[2018-02-27] MEDS: Oxybutynin 5 MG Tab PO SCH ×2 (08:00→20:58)
[2018-02-27] MEDS: FERROUS SULFATE 50 MG PO SCH ×2 (08:00→20:59)
[2018-02-27] MEDS: Sertraline 25 MG Tab PO SCH (08:00)
[2018-02-27] MEDS ORDERED: hydrALAZINE 20 MG/ML SDV IVPUSH PRN (10:26)
[2018-02-27] MEDS ORDERED: Magnesium Sulfate/Water 2 GM in Premix Bag 1 BAG IV ONE (10:30)
--- NOTE | 2018-02-27 10:50 | CR ---
Chest: Two views of the chest were obtained. Comparison: Prior chest x-ray of 02/25/18. Hiatal hernia is noted. Heart size and mediastinum are stable. Lungs show no acute parenchymal change. Calcification compatible with calcific tendinitis noted off the humeral head. Bony structures are osteoporotic. Scoliosis and kyphosis are seen. Impression: 1. Hiatal hernia and other incidental findings. Nothing acute is appreciated. Diagnostic code #2
[2018-02-27] MEDS: Enoxaparin 40 MG/0.4 ML Syringe SUBCUT SCH (16:36)
[2018-02-27] MEDS ORDERED: Azithromycin 250 MG Tab PO SCH (17:00)
--- NOTE | 2018-02-27 18:55 | PCM.PN ---
- General Info Date of Service: 02/27/18 - Patient Data Vitals - Most Recent: Last Vital Signs Temp 36.6 C 02/27/18 16:35 Pulse 88 02/27/18 16:35 Resp 18 02/27/18 16:35 BP 145/72 H 02/27/18 16:35 Pulse Ox 97 02/27/18 16:35 Weight - Most Recent: 54.522 kg I&O - Last 24 Hours: Intake & Output 02/27/18 02/27/18 02/27/18 06:59 14:59 22:59 Intake Total 400 100 330 Output Total 200 Balance 400 100 130 Lab Results Last 24 Hours: Laboratory Results - last 24 hr 02/27/18 02/27/18 02/27/18 Range/Units 05:48 05:48 05:48 WBC 6.88 (3.98-10.04) K/mm3 RBC 4.03 (3.98-5.22) M/mm3 Hgb 12.6 (11.2-15.7) gm/L Hct 38.1 (34.1-44.9) % MCV 94.5 (79.4-94.8) fl MCH 31.3 (25.6-32.2) pg MCHC 33.1 (32.2-35.5) g/dl RDW Std Deviation 64.5 H (36.4-46.3) fL Plt Count 255 (182-369) K/mm3 MPV 9.4 (9.4-12.3) fl Neut % (Auto) 80.1 H (34.0-71.1) % Lymph % (Auto) 10.9 L (19.3-51.7) % [place] % (Auto) 8.0 (4.7-12.5) % Eos % (Auto) 0.6 L (0.7-5.8) Baso % (Auto) 0.1 (0.1-1.2) % Neut # (Auto) 5.51 (1.56-6.13) K/mm3 Lymph # (Auto) 0.75 L (1.18-3.74) K/mm3 [place] # (Auto) 0.55 H (0.24-0.36) K/mm3 Eos # (Auto) 0.04 (0.04-0.36) K/mm3 Baso # (Auto) 0.01 (0.01-0.08) K/mm3 Sodium 139 (136-145) mEq/L Potassium 3.6 (3.5-5.1) mEq/L Chloride 101 (98-107) mEq/L Carbon Dioxide 28 (21-32) mEq/L Anion Gap 13.6 (5-15) BUN 17 (7-18) mg/dL Creatinine 0.9 (0.55-1.02) mg/dL Est Cr Clr Drug Dosing 35.05 mL/min Estimated GFR (MDRD) 59 (>60) mL/min BUN/Creatinine Ratio 18.9 H (14-18) Glucose 97 (83-115) mg/dL Lactic Acid 1.5 (0.4-2.0) mmol/L Calcium 9.1 (8.5-10.1) mg/dL Magnesium 1.8 (1.8-2.4) mg/dl C-Reactive Protein 26.0 H* (<1.0) mg/dL Beck Results Last 24 Hours: Microbiology 02/25/18 11:00 Aerobic Blood Culture - Preliminary Blood - Venous - Lab Draw NO GROWTH AFTER 2 DAYS Anaerobic Blood Culture - Preliminary NO GROWTH AFTER 2 DAYS 02/25/18 10:55 Aerobic Blood Culture - Preliminary Blood - Venous NO GROWTH AFTER 2 DAYS Anaerobic Blood Culture - Preliminary NO GROWTH AFTER 2 DAYS 02/25/18 10:21 Urine Culture - Final Urine, Catheterized NO GROWTH AFTER 2 DAYS 02/25/18 12:30 Gram Stain - Final Joint / Synovial Fluid - Knee, Right Body Fluid Culture - Preliminary NO GROWTH AFTER 2 DAYS Med Orders - Current: Current Medications Acetaminophen (Tylenol) 650 mg PO Q8H PRN PRN Reason: Pain/Fever Albuterol/Ipratropium (Duoneb 3.0-0.5 Mg/3 Ml) 3 ml NEB QID PRN PRN Reason: Shortness of Breath Ascorbic Acid (Vitamin C) 500 mg PO DAILY [facility] Last Admin: 02/27/18 07:59 Dose: 500 mg Aspirin (Halfprin) 81 mg PO DAILY [facility] Last Admin: 02/27/18 07:59 Dose: 81 mg Azithromycin (Zithromax) 250 mg PO Q24H [facility] Last Admin: 02/27/18 16:36 Dose: 250 mg Docusate Sodium (Colace) 100 mg PO BID PRN PRN Reason: Constipation Enoxaparin Sodium (Lovenox) 40 mg SUBCUT Q24H [facility] Last Admin: 02/27/18 16:36 Dose: 40 mg Guaifenesin/Phenylephrine HCl (Robitussin Dm) 15 ml PO Q6H PRN PRN Reason: Cough Hydralazine HCl (Apresoline) 20 mg IVPUSH Q6H PRN PRN Reason: BP >150 systolic Last Admin: 02/27/18 10:48 Dose: 20 mg Ondansetron HCl (Zofran) 4 mg IVPUSH Q8H PRN PRN Reason: Nausea/Vomiting Oxybutynin Chloride (Oxybutynin) 5 mg PO BID [facility] Last Admin: 02/27/18 08:00 Dose: 5 mg Pantoprazole Sodium (Protonix) 40 mg PO DAILY@0700 [facility] Last Admin: 02/27/18 06:38 Dose: 40 mg Ferrous Sulfate 50 (Mg Tab.) 0 each PO BID [facility] Last Admin: 02/27/18 08:00 Dose: Not Given Hydroxyurea 500 Mg (Cap.) 0 each PO DAILY [facility] Last Admin: 02/27/18 08:00 Dose: Not Given Sertraline HCl (Zoloft) 25 mg PO DAILY [facility] Last Admin: 02/27/18 08:00 Dose: 25 mg Sodium Chloride (Saline Flush) 10 ml FLUSH ASDIRECTED PRN PRN Reason: Keep Vein Open Last Admin: 02/25/18 11:14 Dose: 10 ml Tramadol HCl (Ultram) 50 mg PO Q6H PRN PRN Reason: Pain (moderate 4-6) Discontinued Medications Acetaminophen (Tylenol) 975 mg PO NOW ONE Stop: 02/25/18 10:36 Last Admin: 02/25/18 11:05 Dose: 975 mg Acetaminophen (Tylenol) 975 mg PO Q8H PRN PRN Reason: Pain/Fever Azithromycin (Zithromax) 500 mg IV Q24H [facility] Ceftriaxone Sodium 2 gm/ (Sodium Chloride) 100 mls @ 100 mls/hr IV ONETIME ONE Stop: 02/25/18 11:37 Last Admin: 02/25/18 11:14 Dose: 100 mls/hr Sodium Chloride (Normal Saline) 1,000 mls @ 125 mls/hr IV ASDIRECTED [facility] Last Admin: 02/25/18 11:05 Dose: 125 mls/hr Ceftriaxone Sodium 2 gm/ (Sodium Chloride) 100 mls @ 100 mls/hr IV Q24H [facility] Last Admin: 02/26/18 12:46 Dose: 100 mls/hr Azithromycin 500 mg/ Sodium (Chloride) 250 mls @ 250 mls/hr IV Q24H [facility] Last Admin: 02/26/18 17:24 Dose: 250 mls/hr Magnesium Sulfate 2 gm/ Premix 50 mls @ 25 mls/hr IV ONETIME ONE Stop: 02/27/18 12:29 Last Admin: 02/27/18 10:47 Dose: 25 mls/hr Lidocaine HCl (Xylocaine 1%) 10 ml INJECT ONETIME ONE Stop: 02/25/18 12:14 Last Admin: 02/25/18 12:25 Dose: 10 ml Potassium Chloride (Klor-Con M20) 40 meq PO BID [facility] Stop: 02/27/18 09:01 Last Admin: 02/27/18 07:59 Dose: 40 meq - My Orders Last 24 Hours: My Active Orders 02/27/18 08:00 Consult to Occupational Therapy [OT Evaluation and Treatment] [CONS] Routine Consult to Physical Therapy [PT Evaluation and Treatment] [CONS] Routine 02/27/18 10:26 hydrALAZINE [Apresoline] 20 mg IVPUSH Q6H PRN 02/27/18 11:06 Consult to Speech Language Pathology [ASIC ENGINEER Evaluation and Treatment] [CONS] Routine 02/27/18 17:00 Azithromycin [Zithromax] 250 mg PO Q24H 02/28/18 05:00 BMP [BASIC METABOLIC PANEL,BMP] [CHEM] DAILY CBC WITH AUTO DIFF [HEME] DAILY CRP [C-REACTIVE PROTEIN] [CHEM] DAILY LACTIC ACID [CHEM] DAILY MAGNESIUM [CHEM] DAILY 02/28/18 Breakfast Heart Healthy Diet [DIET] 03/01/18 05:00 BMP [BASIC METABOLIC PANEL,BMP] [CHEM] DAILY CBC WITH AUTO DIFF [HEME] DAILY CRP [C-REACTIVE PROTEIN] [CHEM] DAILY LACTIC ACID [CHEM] DAILY MAGNESIUM [CHEM] DAILY - Plan Plan:: LOS>96 hours with placement needed for SNF re: inpatient rehab
[2018-02-28] MEDS: Acetaminophen 325 MG Tab PO PRN ×2 (00:02→09:43)
[2018-02-28] MEDS: Pantoprazole 40 MG Tab.CR PO SCH (06:52)
[2018-02-28] MEDS: Sertraline 25 MG Tab PO SCH (09:42)
[2018-02-28] MEDS: FERROUS SULFATE 50 MG PO SCH ×2 (09:43→22:01)
[2018-02-28] MEDS: Aspirin 81 MG Tab.EC PO SCH (09:43)
[2018-02-28] MEDS: Oxybutynin 5 MG Tab PO SCH ×2 (09:43→22:00)
[2018-02-28] MEDS: HYDROXYUREA 500 MG PO SCH (09:43)
[2018-02-28] MEDS: Ascorbic Acid 500 MG Tab PO SCH (09:43)
[2018-02-28] MEDS: Enoxaparin 40 MG/0.4 ML Syringe SUBCUT SCH (17:23)
--- NOTE | 2018-02-28 18:35 | PCM.PN ---
- General Info Date of Service: 02/28/18 - Patient Data Vitals - Most Recent: Last Vital Signs Temp 36.7 C 02/28/18 15:00 Pulse 80 02/28/18 15:00 Resp 22 H 02/28/18 15:00 BP 173/79 H 02/28/18 15:00 Pulse Ox 95 02/28/18 15:00 Weight - Most Recent: 56.2 kg I&O - Last 24 Hours: Intake & Output 02/28/18 02/28/18 02/28/18 06:59 14:59 22:59 Intake Total 300 270 670 Output Total 300 200 Balance 0 270 470 Lab Results Last 24 Hours: Laboratory Results - last 24 hr 02/26/18 02/28/18 02/28/18 Range/Units 11:32 06:20 06:20 WBC 5.48 (3.98-10.04) K/mm3 RBC 3.94 L (3.98-5.22) M/mm3 Hgb 12.2 (11.2-15.7) gm/L Hct 36.6 (34.1-44.9) % MCV 92.9 (79.4-94.8) fl MCH 31.0 (25.6-32.2) pg MCHC 33.3 (32.2-35.5) g/dl RDW Std Deviation 63.7 H (36.4-46.3) fL Plt Count 234 (182-369) K/mm3 MPV 9.4 (9.4-12.3) fl Neut % (Auto) 71.1 (34.0-71.1) % Lymph % (Auto) 14.8 L (19.3-51.7) % [place] % (Auto) 12.2 (4.7-12.5) % Eos % (Auto) 1.3 (0.7-5.8) Baso % (Auto) 0.2 (0.1-1.2) % Neut # (Auto) 3.90 (1.56-6.13) K/mm3 Lymph # (Auto) 0.81 L (1.18-3.74) K/mm3 [place] # (Auto) 0.67 H (0.24-0.36) K/mm3 Eos # (Auto) 0.07 (0.04-0.36) K/mm3 Baso # (Auto) 0.01 (0.01-0.08) K/mm3 Sodium 137 (136-145) mEq/L Potassium 4.6 (3.5-5.1) mEq/L Chloride 102 (98-107) mEq/L Carbon Dioxide 27 (21-32) mEq/L Anion Gap 12.6 (5-15) BUN 15 (7-18) mg/dL Creatinine 0.9 (0.55-1.02) mg/dL Est Cr Clr Drug Dosing 35.05 mL/min Estimated GFR (MDRD) 59 (>60) mL/min BUN/Creatinine Ratio 16.7 (14-18) Glucose 97 (83-115) mg/dL Lactic Acid (0.4-2.0) mmol/L Calcium 9.2 (8.5-10.1) mg/dL Magnesium 2.2 (1.8-2.4) mg/dl C-Reactive Protein 16.6 H* (<1.0) mg/dL Adenovirus (PCR) Not detected (Not Detected) B. pertussis DNA (PCR) Not detected (Not Detected) B.parapertussis DNA PCR Not detected (Not Detected) C. pneumoniae DNA (PCR) Not detected (Not Detected) Coronavirus (PCR) Not detected (Not Detected) Human Metapneumovir PCR Not detected (Not Detected) Influenza A (RT-PCR) Not detected (Not Detected) Influenza A (H1) PCR Not Reportable Influ A (H1N1/09) PCR Not Reportable Influenza A (H3) PCR Not Reportable Influenza B (RT-PCR) Not detected (Not Detected) M. pneumoniae (PCR) Not detected (Not Detected) Parainfluen 1,2,3,4 PCR Not detected (Not Detected) RSV (PCR) Not detected (Not Detected) Entero/Rhino (PCR) Not detected (Not Detected) 02/28/18 Range/Units 06:20 WBC (3.98-10.04) K/mm3 RBC (3.98-5.22) M/mm3 Hgb (11.2-15.7) gm/L Hct (34.1-44.9) % MCV (79.4-94.8) fl MCH (25.6-32.2) pg MCHC (32.2-35.5) g/dl RDW Std Deviation (36.4-46.3) fL Plt Count (182-369) K/mm3 MPV (9.4-12.3) fl Neut % (Auto) (34.0-71.1) % Lymph % (Auto) (19.3-51.7) % [place] % (Auto) (4.7-12.5) % Eos % (Auto) (0.7-5.8) Baso % (Auto) (0.1-1.2) % Neut # (Auto) (1.56-6.13) K/mm3 Lymph # (Auto) (1.18-3.74) K/mm3 [place] # (Auto) (0.24-0.36) K/mm3 Eos # (Auto) (0.04-0.36) K/mm3 Baso # (Auto) (0.01-0.08) K/mm3 Sodium (136-145) mEq/L Potassium (3.5-5.1) mEq/L Chloride (98-107) mEq/L Carbon Dioxide (21-32) mEq/L Anion Gap (5-15) BUN (7-18) mg/dL Creatinine (0.55-1.02) mg/dL Est Cr Clr Drug Dosing mL/min Estimated GFR (MDRD) (>60) mL/min BUN/Creatinine Ratio (14-18) Glucose (83-115) mg/dL Lactic Acid 1.3 (0.4-2.0) mmol/L Calcium (8.5-10.1) mg/dL Magnesium (1.8-2.4) mg/dl C-Reactive Protein (<1.0) mg/dL Adenovirus (PCR) (Not Detected) B. pertussis DNA (PCR) (Not Detected) B.parapertussis DNA PCR (Not Detected) C. pneumoniae DNA (PCR) (Not Detected) Coronavirus (PCR) (Not Detected) Human Metapneumovir PCR (Not Detected) Influenza A (RT-PCR) (Not Detected) Influenza A (H1) PCR Influ A (H1N1/09) PCR Influenza A (H3) PCR Influenza B (RT-PCR) (Not Detected) M. pneumoniae (PCR) (Not Detected) Parainfluen 1,2,3,4 PCR (Not Detected) RSV (PCR) (Not Detected) Entero/Rhino (PCR) (Not Detected) Beck Results Last 24 Hours: Microbiology 02/25/18 11:00 Aerobic Blood Culture - Preliminary Blood - Venous - Lab Draw NO GROWTH AFTER 3 DAYS Anaerobic Blood Culture - Preliminary NO GROWTH AFTER 3 DAYS 02/25/18 10:55 Aerobic Blood Culture - Preliminary Blood - Venous NO GROWTH AFTER 3 DAYS Anaerobic Blood Culture - Preliminary NO GROWTH AFTER 3 DAYS 02/25/18 12:30 Gram Stain - Final Joint / Synovial Fluid - Knee, Right Body Fluid Culture - Preliminary NO GROWTH AFTER 3 DAYS 02/25/18 10:21 Streptococcus pneumoniae Antigen (M - Final Urine Med Orders - Current: Current Medications Acetaminophen (Tylenol) 650 mg PO Q8H PRN PRN Reason: Pain/Fever Last Admin: 02/28/18 09:43 Dose: 650 mg Albuterol/Ipratropium (Duoneb 3.0-0.5 Mg/3 Ml) 3 ml NEB QID PRN PRN Reason: Shortness of Breath Ascorbic Acid (Vitamin C) 500 mg PO DAILY [facility] Last Admin: 02/28/18 09:43 Dose: 500 mg Aspirin (Halfprin) 81 mg PO DAILY [facility] Last Admin: 02/28/18 09:43 Dose: 81 mg Docusate Sodium (Colace) 100 mg PO BID PRN PRN Reason: Constipation Enoxaparin Sodium (Lovenox) 40 mg SUBCUT Q24H [facility] Last Admin: 02/28/18 17:23 Dose: 40 mg Guaifenesin/Phenylephrine HCl (Robitussin Dm) 15 ml PO Q6H PRN PRN Reason: Cough Hydralazine HCl (Apresoline) 20 mg IVPUSH Q6H PRN PRN Reason: BP >150 systolic Last Admin: 02/27/18 10:48 Dose: 20 mg Ondansetron HCl (Zofran) 4 mg IVPUSH Q8H PRN PRN Reason: Nausea/Vomiting Oxybutynin Chloride (Oxybutynin) 5 mg PO BID [facility] Last Admin: 02/28/18 09:43 Dose: 5 mg Pantoprazole Sodium (Protonix) 40 mg PO DAILY@0700 [facility] Last Admin: 02/28/18 06:52 Dose: 40 mg Ferrous Sulfate 50 (Mg Tab.) 0 each PO BID [facility] Last Admin: 02/28/18 09:43 Dose: Not Given Hydroxyurea 500 Mg (Cap.) 0 each PO DAILY [facility] Last Admin: 02/28/18 09:43 Dose: Not Given Sertraline HCl (Zoloft) 25 mg PO DAILY [facility] Last Admin: 02/28/18 09:42 Dose: 25 mg Sodium Chloride (Saline Flush) 10 ml FLUSH ASDIRECTED PRN PRN Reason: Keep Vein Open Last Admin: 02/25/18 11:14 Dose: 10 ml Tramadol HCl (Ultram) 50 mg PO Q6H PRN PRN Reason: Pain (moderate 4-6) Discontinued Medications Acetaminophen (Tylenol) 975 mg PO NOW ONE Stop: 02/25/18 10:36 Last Admin: 02/25/18 11:05 Dose: 975 mg Acetaminophen (Tylenol) 975 mg PO Q8H PRN PRN Reason: Pain/Fever Azithromycin (Zithromax) 500 mg IV Q24H [facility] Azithromycin (Zithromax) 250 mg PO Q24H [facility] Last Admin: 02/27/18 16:36 Dose: 250 mg Ceftriaxone Sodium 2 gm/ (Sodium Chloride) 100 mls @ 100 mls/hr IV ONETIME ONE Stop: 02/25/18 11:37 Last Admin: 02/25/18 11:14 Dose: 100 mls/hr Sodium Chloride (Normal Saline) 1,000 mls @ 125 mls/hr IV ASDIRECTED [facility] Last Admin: 02/25/18 11:05 Dose: 125 mls/hr Ceftriaxone Sodium 2 gm/ (Sodium Chloride) 100 mls @ 100 mls/hr IV Q24H [facility] Last Admin: 02/26/18 12:46 Dose: 100 mls/hr Azithromycin 500 mg/ Sodium (Chloride) 250 mls @ 250 mls/hr IV Q24H [facility] Last Admin: 02/26/18 17:24 Dose: 250 mls/hr Magnesium Sulfate 2 gm/ Premix 50 mls @ 25 mls/hr IV ONETIME ONE Stop: 02/27/18 12:29 Last Admin: 02/27/18 10:47 Dose: 25 mls/hr Lidocaine HCl (Xylocaine 1%) 10 ml INJECT ONETIME ONE Stop: 02/25/18 12:14 Last Admin: 02/25/18 12:25 Dose: 10 ml Potassium Chloride (Klor-Con M20) 40 meq PO BID [facility] Stop: 02/27/18 09:01 Last Admin: 02/27/18 07:59 Dose: 40 meq - My Orders Last 24 Hours: My Active Orders 02/28/18 Breakfast Heart Healthy Diet [DIET] 03/01/18 05:00 BMP [BASIC METABOLIC PANEL,BMP] [CHEM] DAILY CBC WITH AUTO DIFF [HEME] DAILY CRP [C-REACTIVE PROTEIN] [CHEM] DAILY LACTIC ACID [CHEM] DAILY MAGNESIUM [CHEM] DAILY - Plan Plan:: LOS>96 hours with placement needed for SNF re: inpatient rehab
[2018-03-01] MEDS: Pantoprazole 40 MG Tab.CR PO SCH (06:32)
[2018-03-01] MEDS: Acetaminophen 325 MG Tab PO PRN (09:40)
[2018-03-01] MEDS: Aspirin 81 MG Tab.EC PO SCH (09:41)
[2018-03-01] MEDS: FERROUS SULFATE 50 MG PO SCH (09:41)
[2018-03-01] MEDS: Ascorbic Acid 500 MG Tab PO SCH (09:41)
[2018-03-01] MEDS: Sertraline 25 MG Tab PO SCH (09:41)
[2018-03-01] MEDS: Oxybutynin 5 MG Tab PO SCH (09:41)
[2018-03-01] MEDS: HYDROXYUREA 500 MG PO SCH (09:41)
[2018-03-01 13:59] VITALS: BP 156/65
--- NOTE | 2018-03-01 15:57 | PCM.DCSUM1 ---
Discharge Summary - Hospital Course Diagnosis: Stroke: No - Discharge Data Discharge Date: 03/01/18 Discharge Disposition: DC/Tfer to [facility] 61 Condition: Good - Patient Summary/Data Consults: Consultations 02/27/18 08:00 Consult to Occupational Therapy [OT Evaluation and Treatment] [CONS] Routine Consult to Physical Therapy [PT Evaluation and Treatment] [CONS] Routine 02/27/18 11:06 Consult to Speech Language Pathology [JOB ANALYSIS MANAGER Evaluation and Treatment] [CONS] Routine - Patient Instructions Diet: Usual Diet as Tolerated Activity: As Tolerated Driving: Do Not Drive Showering/Bathing: May Shower Notify Provider of: Fever, Increased Pain, Nausea and/or Vomiting - Discharge Plan *PRESCRIPTION DRUG MONITORING PROGRAM REVIEWED*: Not Applicable *COPY OF PRESCRIPTION DRUG MONITORING REPORT IN PATIENT JONNA: Not Applicable Prescriptions/Med Rec: traMADol [Ultram] 50 mg PO Q8H PRN #20 tablet PRN Reason: Pain (Moderate 4-6) Home Medications: Home Meds Ascorbic Acid [Vitamin C] 500 mg PO DAILY 10/25/16 [History] Docusate Sodium 100 mg PO BID PRN 10/25/16 [History] Lisinopril/Hydrochlorothiazide [Lisinopril-Hctz 10-12.5 mg Tab] 10 - 12.5 mg PO DAILY 10/25/16 [History] Multivitamin [Multivitamins] 1 cap PO DAILY 10/25/16 [History] Omeprazole 20 mg PO DAILY 10/25/16 [History] Oxybutynin 10 mg PO 1700 10/25/16 [History] Sertraline [Zoloft] 25 mg PO DAILY 12/13/17 [History] Acetaminophen [Tylenol Extra Strength] 1,000 mg PO Q8H PRN 02/25/18 [History] Aspirin [Lo-Dose Aspirin EC] 81 mg PO DAILY 02/25/18 [History] Calcium Polycarbophil [Fibercon] 625 mg PO BID 02/25/18 [History] Ferrous Sulfate [Slow Fe] 50 mg PO BID 02/25/18 [History] Furosemide [Lasix] 20 mg PO DAILY PRN 02/25/18 [History] Hydroxyurea [Hydrea] 500 mg PO DAILY 02/25/18 [History] Ibuprofen 200 mg PO Q8H PRN 02/25/18 [History] traMADol [Ultram] 50 mg PO Q8H PRN #20 tablet 03/01/18 [Rx] Patient Handouts: Knee Pain, Adult Referrals: Riki Hernandez MD [Primary Care Provider] - (Please call and schedule a post hospital follow-up appointment with your pcp, Dr. Hernandez, with 1 to 2 weeks of discharge. ) - General Info Date of Service: 02/25/18 - Patient Data Vitals - Most Recent: Last Vital Signs Temp 36.7 C 03/01/18 11:15 Pulse 86 03/01/18 11:15 Resp 21 H 03/01/18 11:15 BP 156/65 H 03/01/18 11:15 Pulse Ox 94 L 03/01/18 11:15 Weight - Most Recent: 56.835 kg I&O - Last 24 hours: Intake & Output 03/01/18 03/01/18 03/01/18 06:59 14:59 22:59 Intake Total 200 530 Output Total 100 Balance 100 530 Lab Results - Last 24 hrs: Laboratory Results - last 24 hr 02/26/18 03/01/18 03/01/18 Range/Units 11:32 06:32 06:32 WBC 5.02 (3.98-10.04) K/mm3 RBC 3.25 L (3.98-5.22) M/mm3 Hgb 10.1 L (11.2-15.7) gm/L Hct 30.9 L (34.1-44.9) % MCV 95.1 H (79.4-94.8) fl MCH 31.1 (25.6-32.2) pg MCHC 32.7 (32.2-35.5) g/dl RDW Std Deviation 65.0 H (36.4-46.3) fL Plt Count 253 (182-369) K/mm3 MPV 9.2 L (9.4-12.3) fl Neut % (Auto) 59.0 (34.0-71.1) % Lymph % (Auto) 21.5 (19.3-51.7) % Blair % (Auto) 14.3 H (4.7-12.5) % Eos % (Auto) 4.8 (0.7-5.8) Baso % (Auto) 0.2 (0.1-1.2) % Neut # (Auto) 2.96 (1.56-6.13) K/mm3 Lymph # (Auto) 1.08 L (1.18-3.74) K/mm3 Blair # (Auto) 0.72 H (0.24-0.36) K/mm3 Eos # (Auto) 0.24 (0.04-0.36) K/mm3 Baso # (Auto) 0.01 (0.01-0.08) K/mm3 Sodium 139 (136-145) mEq/L Potassium 4.4 (3.5-5.1) mEq/L Chloride 105 (98-107) mEq/L Carbon Dioxide 29 (21-32) mEq/L Anion Gap 9.4 (5-15) BUN 14 (7-18) mg/dL Creatinine 0.8 (0.55-1.02) mg/dL Est Cr Clr Drug Dosing 39.44 mL/min Estimated GFR (MDRD) > 60 (>60) mL/min BUN/Creatinine Ratio 17.5 (14-18) Glucose 85 (83-115) mg/dL Lactic Acid (0.4-2.0) mmol/L Calcium 8.4 L (8.5-10.1) mg/dL Magnesium 2.1 (1.8-2.4) mg/dl C-Reactive Protein 8.4 H* (<1.0) mg/dL Influenza A (H1) PCR Not Reportable Influ A (H1N1/09) PCR Not Reportable Influenza A (H3) PCR Not Reportable 03/01/18 Range/Units 06:32 WBC (3.98-10.04) K/mm3 RBC (3.98-5.22) M/mm3 Hgb (11.2-15.7) gm/L Hct (34.1-44.9) % MCV (79.4-94.8) fl MCH (25.6-32.2) pg MCHC (32.2-35.5) g/dl RDW Std Deviation (36.4-46.3) fL Plt Count (182-369) K/mm3 MPV (9.4-12.3) fl Neut % (Auto) (34.0-71.1) % Lymph % (Auto) (19.3-51.7) % Blair % (Auto) (4.7-12.5) % Eos % (Auto) (0.7-5.8) Baso % (Auto) (0.1-1.2) % Neut # (Auto) (1.56-6.13) K/mm3 Lymph # (Auto) (1.18-3.74) K/mm3 Blair # (Auto) (0.24-0.36) K/mm3 Eos # (Auto) (0.04-0.36) K/mm3 Baso # (Auto) (0.01-0.08) K/mm3 Sodium (136-145) mEq/L Potassium (3.5-5.1) mEq/L Chloride (98-107) mEq/L Carbon Dioxide (21-32) mEq/L Anion Gap (5-15) BUN (7-18) mg/dL Creatinine (0.55-1.02) mg/dL Est Cr Clr Drug Dosing mL/min Estimated GFR (MDRD) (>60) mL/min BUN/Creatinine Ratio (14-18) Glucose (83-115) mg/dL Lactic Acid 0.9 (0.4-2.0) mmol/L Calcium (8.5-10.1) mg/dL Magnesium (1.8-2.4) mg/dl C-Reactive Protein (<1.0) mg/dL Influenza A (H1) PCR Influ A (H1N1/09) PCR Influenza A (H3) PCR JANE Results - Last 24 hrs: Microbiology 02/25/18 11:00 Aerobic Blood Culture - Preliminary Blood - Venous - Lab Draw NO GROWTH AFTER 4 DAYS Anaerobic Blood Culture - Preliminary NO GROWTH AFTER 4 DAYS 02/25/18 10:55 Aerobic Blood Culture - Preliminary Blood - Venous NO GROWTH AFTER 4 DAYS Anaerobic Blood Culture - Preliminary NO GROWTH AFTER 4 DAYS 02/25/18 12:30 Gram Stain - Final Joint / Synovial Fluid - Knee, Right Body Fluid Culture - Preliminary NO GROWTH AFTER 4 DAYS Med Orders - Current: Current Medications Acetaminophen (Tylenol) 650 mg PO Q8H PRN PRN Reason: Pain/Fever Last Admin: 03/01/18 09:40 Dose: 650 mg Albuterol/Ipratropium (Duoneb 3.0-0.5 Mg/3 Ml) 3 ml NEB QID PRN PRN Reason: Shortness of Breath Ascorbic Acid (Vitamin C) 500 mg PO DAILY [facility] Last Admin: 03/01/18 09:41 Dose: 500 mg Aspirin (Halfprin) 81 mg PO DAILY [facility] Last Admin: 03/01/18 09:41 Dose: 81 mg Docusate Sodium (Colace) 100 mg PO BID PRN PRN Reason: Constipation Last Admin: 02/28/18 22:02 Dose: 100 mg Enoxaparin Sodium (Lovenox) 40 mg SUBCUT Q24H [facility] Last Admin: 02/28/18 17:23 Dose: 40 mg Guaifenesin/Phenylephrine HCl (Robitussin Dm) 15 ml PO Q6H PRN PRN Reason: Cough Hydralazine HCl (Apresoline) 20 mg IVPUSH Q6H PRN PRN Reason: BP >150 systolic Last Admin: 02/27/18 10:48 Dose: 20 mg Ondansetron HCl (Zofran) 4 mg IVPUSH Q8H PRN PRN Reason: Nausea/Vomiting Oxybutynin Chloride (Oxybutynin) 5 mg PO BID [facility] Last Admin: 03/01/18 09:41 Dose: 5 mg Pantoprazole Sodium (Protonix) 40 mg PO DAILY@0700 [facility] Last Admin: 03/01/18 06:32 Dose: 40 mg Ferrous Sulfate 50 (Mg Tab.) 0 each PO BID [facility] Last Admin: 03/01/18 09:41 Dose: Not Given Hydroxyurea 500 Mg (Cap.) 0 each PO DAILY [facility] Last Admin: 03/01/18 09:41 Dose: Not Given Sertraline HCl (Zoloft) 25 mg PO DAILY [facility] Last Admin: 03/01/18 09:41 Dose: 25 mg Sodium Chloride (Saline Flush) 10 ml FLUSH ASDIRECTED PRN PRN Reason: Keep Vein Open Last Admin: 02/25/18 11:14 Dose: 10 ml Tramadol HCl (Ultram) 50 mg PO Q6H PRN PRN Reason: Pain (moderate 4-6) Last Admin: 02/28/18 22:00 Dose: 50 mg Discontinued Medications Acetaminophen (Tylenol) 975 mg PO NOW ONE Stop: 02/25/18 10:36 Last Admin: 02/25/18 11:05 Dose: 975 mg Acetaminophen (Tylenol) 975 mg PO Q8H PRN PRN Reason: Pain/Fever Azithromycin (Zithromax) 500 mg IV Q24H [facility] Azithromycin (Zithromax) 250 mg PO Q24H [facility] Last Admin: 02/27/18 16:36 Dose: 250 mg Ceftriaxone Sodium 2 gm/ (Sodium Chloride) 100 mls @ 100 mls/hr IV ONETIME ONE Stop: 02/25/18 11:37 Last Admin: 02/25/18 11:14 Dose: 100 mls/hr Sodium Chloride (Normal Saline) 1,000 mls @ 125 mls/hr IV ASDIRECTED [facility] Last Admin: 02/25/18 11:05 Dose: 125 mls/hr Ceftriaxone Sodium 2 gm/ (Sodium Chloride) 100 mls @ 100 mls/hr IV Q24H [facility] Last Admin: 02/26/18 12:46 Dose: 100 mls/hr Azithromycin 500 mg/ Sodium (Chloride) 250 mls @ 250 mls/hr IV Q24H [facility] Last Admin: 02/26/18 17:24 Dose: 250 mls/hr Magnesium Sulfate 2 gm/ Premix 50 mls @ 25 mls/hr IV ONETIME ONE Stop: 02/27/18 12:29 Last Admin: 02/27/18 10:47 Dose: 25 mls/hr Lidocaine HCl (Xylocaine 1%) 10 ml INJECT ONETIME ONE Stop: 02/25/18 12:14 Last Admin: 02/25/18 12:25 Dose: 10 ml Potassium Chloride (Klor-Con M20) 40 meq PO BID [facility] Stop: 02/27/18 09:01 Last Admin: 02/27/18 07:59 Dose: 40 meq
== END 2018-03-01 13:49 | DRG 195 ==
LOC: JD.ED 10:02 → SUPCPDRO 10:02 → JD.MS 13:49
PROVIDERS: ADMIT Internal Medicine Cardiovascular Disease; ATTEND Internal Medicine Cardiovascular Disease
DX: J18.1 Lobar pneumonia, unspecified organism (principal); R09.02 Hypoxemia; H54.7 Unspecified visual loss; I10 Essential (primary) hypertension; K21.9 Gastro-esophageal reflux disease without esophagitis; F03.90 Unspecified dementia, unspecified severity, without behavioral disturbance, psychotic disturbance, mood disturbance, and anxiety; D50.9 Iron deficiency anemia, unspecified; Z85.42 Personal history of malignant neoplasm of other parts of uterus; Z90.710 Acquired absence of both cervix and uterus; Z90.49 Acquired absence of other specified parts of digestive tract; Z96.659 Presence of unspecified artificial knee joint; Z87.440 Personal history of urinary (tract) infections; Z88.6 Allergy status to analgesic agent; Z88.8 Allergy status to other drugs, medicaments and biological substances; Z79.899 Other long term (current) drug therapy; Z79.82 Long term (current) use of aspirin; M25.561 Pain in right knee; R05 Cough; R41.0 Disorientation, unspecified; R50.9 Fever, unspecified; R11.0 Nausea
CPT/HCPCS: 36415; 71045; 73564; 80053; 81001; 83605; 85025; 86140; 86738; 87040 ×2; 87070; 87086; 87205; 87899; 89060; 96361; 96365; 99285; A9270; J0696; J7030; J7040; J7050; 71046; 71046-26; 80048; 82607; 82746; 83735; 87486; 87581; 87632; 87641; 87798; 92507-GN; 92523-GN; 97110-GP; 97116-GP; 97161-GP; 97166-GO; 97530-GO; J0360; J0456; J1650; J3475